=== PATIENT | male | born 1975 | race African-American/Black ===

== ENCOUNTER 2016-05-21 05:10 | Emergency (ER) | payer OTHER ==
[2016-05-21 05:18] VITALS: BMI 23.9
--- NOTE | 2016-05-21 06:26 | RAD ---
EXAM: Right foot x-ray INDICATION: Pain COMPARISION: None TECHNIQUE: AP, lateral, and oblique, three views FINDINGS: No acute fracture or dislocation. The joint spaces are preserved. The soft tissues are normal. No ra diopaque foreign body. IMPRESSION: Normal right foot x-ray exam Reported By:
--- NOTE | 2016-05-21 06:26 | DR.GENAD ---
HPI - PCP Primary Care Physician: NORMA - Complaint/Symptoms Chief Complaint:: RIGHT GREAT TOE INJURY Self Treatment fo Chief Complaint: PT TOOK TYLENOL BUT IT WOULD NOT HELP EASE IT OFF - Source History Provided: Patient - Mode of Arrival Mode of Arrival: Ambulatory - Timing Onset of Chief Complaint: 05/20/16 PMH - PMH Past Medical History: Yes Past Medical History: Hypertension Past Surgical History: No - Family History History of Family Medical Conditions: Yes Family Medical History: Hypertension - Social History Does patient currently use any type of tobacco product: No Have you used tobacco products in the last 12 months: No Type of Tobacco Use: Cigars Does any household member use tobacco: No Alcohol Use: Occasionally Do you use any recreational Drugs:: No Lives With: Alone Lives Where: Home - infectious screening In the last 2 months have you had wt loss of >10#?: NO Have you had fever, night sweats or hemotysis?: No Have you traveled outside the country in the last 6 months?: No Isolation: Standard ROS - Review of Systems Constitutional: No Symptoms Reported Eyes: No Symptoms Reported ENTM: No Symptoms Reported Respiratoy: No Symptoms Reported Cardiovascular: No Symptoms Reported Gastrointestinal/Abdominal: No Symptoms Reported Genitourinary: No Symptoms Reported Neurological: No Symptoms Reported Musculoskeletal: Foot (injured great toe) Integumentary: No Symptoms Reported Hematologic/Lymphatic: No Symptoms Reported Endocrine: No Symptoms Reported Psychiatric: No Symptoms Reported All Other Systems: Reviewed and Negative PE - Vital Signs Vitals: Temperature 99 F Pulse Rate 65 Respiratory Rate 16 Blood Pressure 121/75 O2 Sat by Pulse Oximetry 99 - General Limitations: No Limitations General Appearance: Alert - Head Head Exam: Normal Inspection, Atraumatic - Eyes Eye exam: Normal Appearance, PERRL, EOMI - ENT ENT Exam: Normal Exam External Ear Exam: Normal External Inspection TM/Canal Exam: Bilateral Normal Nose Exam: Normal Nose Exam Mouth Exam: Normal Inspection Throat Exam: Normal Inspection - Neck Neck Exam: Normal Inspection - Chest Chest Inspection: Normal Inspection - Respiratory Respiratory Exam: Normal Lung Sounds Bilat Respiratory Exam: Bilateral Clear to Auscultation - Cardiovascular Cardiovascular Exam: Regular Rate - Abdominal Exam Abdominal Exam: Normal Inspection Abdominal Tenderness: negative: RUQ, RLQ, LUQ, LLQ, Epigastrium, Suprapubic, Diffuse, Mild, Moderate, Severe, Other - Extremities Extremities Exam: Normal Inspection, Full ROM - Back Back Exam: Normal Inspection, Full ROM - Neurologic Neurological Exam: Alert, Oriented X3, CN II-XII Intact - Psychiatric Psychiatric Exam: Normal Affect - Skin Skin Exam: Warm, Dry ROR - XRAY XRAY Interpreted by: Radiologist (Foot: normal) Procedures - Procedure Comments Procedures: Trephination of great toe of right foot - Diagnosis Discharge Problem: Crushing injury of great toe of right foot Qualifiers: Encounter type: initial encounter Qualified Code(s): S97.111A - Crushing injury of right great toe, initial encounter - Discharge Plan Condition: Stable - Follow ups/Referrals Follow ups/Referrals: Hank Mcgovern [Primary Care Provider] - 3 days - Instructions
[2016-05-21 06:51] VITALS: BP 113/67
== END 2016-05-21 06:50 | disposition home or self-care (01) ==
LOC: ER 05:10
DX: S97.111A Crushing injury of right great toe, initial encounter (principal); Y33.XXXA Other specified events, undetermined intent, initial encounter; Y92.9 Unspecified place or not applicable
CPT/HCPCS: 73630; 99282

== ENCOUNTER 2018-11-03 23:16 | Inpatient (IN) ==
[2018-11-03 23:29] VITALS: BMI 22.8
[2018-11-04] MEDS ORDERED: TORADOL 60 MG VIAL IM ONE (00:33)
[2018-11-04] MEDS ORDERED: TORADOL 60 MG VIAL ONE (00:34)
--- NOTE | 2018-11-04 00:38 | DR.ABDMALE ---
HPI - Time seen Time seen: 00:32 - PCP Primary Care Physician: DR. GREEN - Complaint Chief Complaint Doctors Comments: Patient is complaining of LUQ pain and left sided back pain for the past seven days getting progressively worst today. aixa whitaker states he is having sharp pain with the pain being 8 of 10 with the pain worst on movement. He denies hematuria or dysuria but has nocturia x2. He smokes two cigars weeklyand drinks alcohol socially. He denies drug or vapor usage. He denies any recent trauma. He is a patient of Dr. Green. He denies cold, cough, fever or chills. State he has taken Ibuprofen 800mg for pain today. He denies diarrhea or constipation. Chief Complaint:: STATES HE IS HURTING ON HIS LEFT SIDE. STARTED ABOUT A WEEK AGO. Self Treatment fo Chief Complaint: IBUPROFEN 800MG THIS AM - Reviewed Nurses Notes Review: Yes - Mode of arrival Mode of Arrival: Ambulatory - Timing Onset of Chief Complaint: 10/27/18 Came on: Gradually - Duration Duration: Intermittent How lon Duration: Days - Location Location: LUQ - Severity Severity: Moderate - Quality Quality: Sharp - Context Onset: Gradually History of: None - Modifying factors Worsening Factors: Movement Improving Factors: Nothing - Associated signs and symptoms Associated Signs and Symptoms: None PMH - PMH Past Medical History: Yes Past Medical History: Hypertension Past Surgical History: No Surgical History: No History - Family History History of Family Medical Conditions: Yes Family Medical History: Hypertension - Social History Type of Tobacco Use: Cigars Does any household member use tobacco: No Alcohol Use: Occasionally Do you use any recreational Drugs:: No Lives With: Alone Lives Where: Home - infectious screening In the last 2 months have you had wt loss of >10#?: NO Have you had fever, night sweats or hemotysis?: No Have you traveled outside the country in the last 6 months?: No Isolation: Standard ROS - Review of Systems Constitutional: No Symptoms Reported Eyes: No Symptoms Reported ENTM: No Symptoms Reported Respiratoy: No Symptoms Reported. negative: See HPI, Productive Cough, Non- Productive Cough, Moist Cough, Dry Cough, Hacking Cough, Barking Cough, Brassy Cough, Orthopnea, Short of Breath, Stridor, Wheezing, Hemoptysis, Other Cardiovascular: No Symptoms Reported. negative: See HPI, Chest Pain, Edema, Palpitations, Syncope, Cyanosis, Skin Mottling, Other Gastrointestinal/Abdominal: No Symptoms Reported, Abdominal Pain Genitourinary: No Symptoms Reported, Frequency. negative: See HPI, Discharge, Dysuria, Hematuria, Pain, Bleeding, Other Neurological: No Symptoms Reported Musculoskeletal: No Symptoms Reported, Back Pain Integumentary: No Symptoms Reported Hematologic/Lymphatic: No Symptoms Reported. negative: See HPI, Anemia, Blood Clots, Easy Bleeding, Easy Bruising, Swollen Glands, Lymphadenopathy, Other Endocrine: No Symptoms Reported. negative: See HPI, Excessive Sweating, Flushing, Intolerance to Cold, Intolerance to Heat, Increased Hunger, Increased Thirst, Increased Urine, Unexplained Weight Gain, Unexplained Weight Loss, Failure to Thrive, Decreased Appetite, Other Psychiatric: No Symptoms Reported. negative: See HPI, Anxiety, Depression, Hallucinations, Excessive crying, Suicidal, Other PE - General Limitations: No Limitations General Appearance: Alert, In Distress (moderate) - Head Head Exam: Normal Inspection, Atraumatic, Normocephalic - Eyes Eye exam: Normal Appearance, PERRL, EOMI. negative: Scleral Icterus, Conjunctival Injection, Nystagmus, Miosis, Mydrasis, Periorbital Swelling, Periorbital Tenderness, Other - ENT ENT Exam: Normal Exam, Normal Oropharynx, Normal External Ear Exam, Mucous Membranes Moist, TM's Normal Bilaterally - Neck Neck Exam: Normal Inspection, Full ROM, Trachea Midline. negative: Tenderness, Meningismus, Lymphadenopathy, Thyromegaly, Other - Chest Chest Inspection: Normal Inspection, Symmetric Chest Wall Rise. negative: Tenderness, Rash, Abscess, Other - Respiratory Respiratory Exam: Normal Lung Sounds Bilat Respiratory Exam: Bilateral Clear to Auscultation - Cardiovascular Cardiovascular Exam: Regular Rate, Normal Rhythm, Normal Heart Sounds - Abdominal Exam Abdominal Exam: Normal Inspection, Normal Bowel Sounds, Soft, Tenderness (LUQ tenderness with guarding), Guarding, Dimnished Bowel Sounds Abdominal Tenderness: LUQ, Epigastrium, Moderate - Rectal Rectal Exam: Deferred - Back Back Exam: Normal Inspection, Full ROM, (L) CVA Tenderness - Extremeties Extremities Exam: Normal Inspection, Full ROM, Normal Capillary Refill. negative: Tenderness, Edema, Joint Swelling, Calf Tenderness, Other - Exam: Male: Deferred - Neurologic Neurological Exam: Alert, Oriented X3, CN II-XII Intact, Normal Gait, Reflexes Normal - Psychiatric Psychiatric Exam: Normal Affect, Normal Mood - Skin Skin Exam: Warm, Dry, Intact, Normal Color - Vital Signs Vital Signs: Temp Pulse Resp BP BP Pulse Ox 11/04/18 00:34 18 11/03/18 23:26 98 F 78 18 132/82 100 10/22/17 21:01 94/54 94/54 Course - Consultation Called: 01:57 (Dr. Dennis want medicine admit consult him; NPO, give Zosyn and Flagyl IV) Call Returned: 01:58 (Dr. Cabezas agrees to admit with surgery consult) - Education/Counseling Education/Counseling: Patient, Family Educated On: Treatment, Diagnosis, Needs for Follow Up ROR - Labs Reviewed Laboratory Results Reviewed?: Yes (All labs and x-ray results reviewed and discussed with patient) Result Diagrams: 11/04/18 00:41 11/04/18 00:41 - XRAY XRAY Interpreted by: Radiologist (CT abdomen and pelvis: Inflamed descending co [place] with thick wall and adjacent free fluid in presence of diverticula concerning for perforated diverticulitis with developing abscess. ) - Labs Reviewed Laboratory: WBC 10.9 X10^3/uL (3.6-10.0) H 11/04/18 00:41 RBC 4.92 X10^6/uL (4.7-6.0) 11/04/18 00:41 Hgb 11.2 g/dL (13.5-18.0) L 11/04/18 00:41 Hct 34.6 % (42.0-54.0) L 11/04/18 00:41 MCV 70.2 fL (80.0-100.0) L 11/04/18 00:41 MCH 22.7 pg (27.0-34.0) L 11/04/18 00:41 MCHC 32.4 g/dL (33.0-35.0) L 11/04/18 00:41 RDW 15.7 % (11.6-16.5) 11/04/18 00:41 Plt Count 180 X10^3/uL (150.0-450.0) 11/04/18 00:41 Plt Count Comment Adequate (ADEQUATE) 11/04/18 00:41 MPV 10.3 fL (7.4-11.0) 11/04/18 00:41 Neut % (Auto) 76.9 % (42.0-75.0) H 11/04/18 00:41 Lymph % (Auto) 14.5 % (21.0-51.0) L 11/04/18 00:41 [place] % (Auto) 7.2 % (0.0-13.0) 11/04/18 00:41 Eos % (Auto) 1.0 % (0.9-2.9) 11/04/18 00:41 Baso % (Auto) 0.4 % (0.2-1.0) 11/04/18 00:41 Neut # (Auto) 8.4 x10^3/uL (2.2-4.8) H 11/04/18 00:41 Lymph # (Auto) 1.6 X10^3/uL (1.3-2.9) 11/04/18 00:41 [place] # (Auto) 0.8 x10^3/uL (0.3-0.8) 11/04/18 00:41 Eos # (Auto) 0.1 x10^3/uL (0.0-0.2) 11/04/18 00:41 Baso # (Auto) 0.0 X10^3/uL (0.0-0.1) 11/04/18 00:41 Absolute Nucleated RBC 0.0 /100WBC 11/04/18 00:41 Plt Morphology Comment Normal (NORMAL) 11/04/18 00:41 RBC Morphology Abnormal (NORMAL) 11/04/18 00:41 Hypochromasia 2+ A 11/04/18 00:41 Anisocytosis 1+ A 11/04/18 00:41 Sodium 140 mmol/L (136-145) 11/04/18 00:41 Corrected Sodium TNP 11/04/18 00:41 Potassium 3.9 mmol/L (3.5-5.1) 11/04/18 00:41 Chloride 104 mmol/L (98-107) 11/04/18 00:41 Carbon Dioxide 28.5 mmol/L (21-32) 11/04/18 00:41 BUN 10 mg/dL (7-18) 11/04/18 00:41 Creatinine 0.63 mg/dL (0.70-1.30) L 11/04/18 00:41 Est GFR (MDRD) Af Amer > 60 (>60) 11/04/18 00:41 Est GFR (MDRD) Non-Af > 60 (>60) 11/04/18 00:41 Glucose 84 mg/dL (65-99) 11/04/18 00:41 Calcium 7.7 mg/dL (8.5-10.1) L 11/04/18 00:41 Corrected Calcium 8.3 mg/dL (8.5-10.1) L 11/04/18 00:41 Total Bilirubin 0.30 mg/dL (0.2-1.0) 11/04/18 00:41 AST 37 Units/L (15-37) 11/04/18 00:41 ALT 53 Units/L (12-78) 11/04/18 00:41 Alkaline Phosphatase 72 Units/L (46-116) 11/04/18 00:41 Total Protein 6.8 g/dL (6.4-8.2) 11/04/18 00:41 Albumin 3.2 g/dL (3.4-5.0) L 11/04/18 00:41 Globulin 3.6 g/dL (2.5-4.5) 11/04/18 00:41 Albumin/Globulin Ratio 0.9 Ratio (1.1-2.1) L 11/04/18 00:41 Amylase 56 Units/L (25-115) 11/04/18 00:41 Lipase 40 Units/L (73-393) L 11/04/18 00:41 Specimen Type Clean catch urine 11/04/18 01:05 Urine Color Yellow (YELLOW) 11/04/18 01:05 Urine Appearance Clear (CLEAR) 11/04/18 01:05 Urine pH 6.5 (5.0 - 8.0) 11/04/18 01:05 Ur Specific [place] 1.010 (1.000-1.030) 11/04/18 01:05 Urine Protein Negative (NEGATIVE) 11/04/18 01:05 Urine Glucose (UA) Negative (NEGATIVE) 11/04/18 01:05 Urine Ketones Negative (NEGATIVE) 11/04/18 01:05 Urine Occult Blood 1+ (NEGATIVE) 11/04/18 01:05 Urine Nitrite Negative (NEGATIVE) 11/04/18 01:05 Urine Bilirubin Negative (NEGATIVE) 11/04/18 01:05 Urine Urobilinogen 2+ (NORMAL) 11/04/18 01:05 Ur Leukocyte Esterase Negative (NEGATIVE) 11/04/18 01:05 Urine RBC 0-2 /HPF (0-3) 11/04/18 01:05 Urine WBC 0-2 /HPF (0-5) 11/04/18 01:05 Ur Squamous Epith Cells Few /HPF (NEGATIVE) 11/04/18 01:05 Urine Bacteria Negative /HPF (NEGATIVE) 11/04/18 01:05 Ur Culture Indicated? No/not indicated 11/04/18 01:05 Opioid - Opioid Risk Tool Total: 0 Total Score Risk Category: Low Risk - Diagnosis Discharge Problem: Acute diverticulitis, Perforated abdominal viscus, Microcytic anemia, Abdominal pain in male, Hypocalcemia - Discharge Plan Disposition: ADMITTED INPATIENT Condition: Stable - Follow ups/Referrals Follow ups/Referrals: Hank Green [Primary Care Provider] - 3 days - Instructions
[2018-11-04 00:49] LABS: BASOPHILS % (AUTO) 0.4 % (0.2-1.0); EOSINOPHILS # (AUTO) 0.1 x10^3/uL (0.0-0.2); HEMATOCRIT 34.6 % (42.0-54.0); HEMOGLOBIN 11.2 g/dL (13.5-18.0); LYMPHOCYTES # (AUTO) 1.6 X10^3/uL (1.3-2.9); LYMPHOCYTES % (AUTO) 14.5 % (21.0-51.0); MEAN CORPUSCULAR HEMOGLOBIN 22.7 pg (27.0-34.0); MEAN CORPUSCULAR HGB CONC 32.4 g/dL (33.0-35.0); MEAN CORPUSCULAR VOLUME 70.2 fL (80.0-100.0); MEAN PLATELET VOLUME 10.3 fL (7.4-11.0); MONOCYTES # (AUTO) 0.8 x10^3/uL (0.3-0.8); MONOCYTES % (AUTO) 7.2 % (0.0-13.0); NEUTROPHILS # (AUTO) 8.4 x10^3/uL (2.2-4.8); NEUTROPHILS % (AUTO) 76.9 % (42.0-75.0); PLATELET COUNT 180 X10^3/uL (150.0-450.0); RED BLOOD COUNT 4.92 X10^6/uL (4.7-6.0); RED CELL DISTRIBUTION WIDTH 15.7 % (11.6-16.5); WHITE BLOOD COUNT 10.9 X10^3/uL (3.6-10.0)
[2018-11-04 00:57] LABS: ALANINE AMINOTRANSFERASE 53 Units/L (12-78); ALBUMIN 3.2 g/dL (3.4-5.0); ALKALINE PHOSPHATASE 72 Units/L (46-116); AMYLASE 56 Units/L (25-115); ASPARTATE AMINO TRANSFERASE 37 Units/L (15-37); BLOOD UREA NITROGEN 10 mg/dL (7-18); CALCIUM 7.7 mg/dL (8.5-10.1); CARBON DIOXIDE 28.5 mmol/L (21-32); CHLORIDE 104 mmol/L (98-107); COR CA(FOR HYPOALB) 8.3 mg/dL (8.5-10.1); CREATININE 0.63 mg/dL (0.70-1.30); LIPASE 40 Units/L (73-393); SODIUM 140 mmol/L (136-145); TOTAL PROTEIN 6.8 g/dL (6.4-8.2); eGFR NON BLACK RACES > 60 (>60)
[2018-11-04 01:14] LABS: BILIRUBIN,URINE NEGATIVE (NEGATIVE); BLOOD/HEMOGLOBIN,URINE 1+ (NEGATIVE); GLUCOSE, URINE NEGATIVE (NEGATIVE); KETONES,URINE NEGATIVE (NEGATIVE); LEUKOCYTE ESTERASE ,URINE NEGATIVE (NEGATIVE); NITRITES,URINE NEGATIVE (NEGATIVE); PH,URINE 6.5 (5.0 - 8.0); PROTEIN,URINE NEGATIVE (NEGATIVE); UROBILINOGEN,URINE 2+ (NORMAL)
[2018-11-04 01:17] LABS: APPEARANCE,URINE CLEAR (CLEAR); COLOR,URINE YELLOW (YELLOW)
--- NOTE | 2018-11-04 01:30 | CT ---
CT abdomen and pelvis without contrast Indication left upper quadrant pain Technique: Helical images through the abdomen and pelvis without contrast. Coronal and sagittal reformats provided. Findings: Limited images through the lower chest shows no acute abnormality. Review of bone windows shows no destructive osseous lesion. Hip joint DJD. Abdomen: The liver, gallbladder, spleen, pancreas, adrenal glands, gallbladder, stomach and small bowel are normal. The appendix is colon. Left renal cyst noted. Kidneys are otherwise normal. Fatty atrophy of the paraspinal musculature noted. There is inflammatory process involving the descending colon on axial image is 46 and coronal image 41. This could reflect acute diverticulitis. Lack of contrast limits sensitivity somewhat. There are noninflamed diverticulum near this inflammation of the colon. Underlying colon lesion should be excluded. Pelvis: The urinary bladder, rectum and prostate gland are normal. There is small free fluid in the left pericolic gutter. Impression: 1. There is inflamed descending colon with thick wall and adjacent free fluid, in the presence of diverticula -this is concerning for perforated diverticulitis with developing abscess. Lack of contrast limits sensitivity significantly. Surgical consultation recommended. 2. Follow-up to exclude underlying neoplasia. Reported By:
[2018-11-04 01:32] LABS: BACTERIA,URINE NEGATIVE /HPF (NEGATIVE); RBC,URINE 0-2 /HPF (0-3); SQUAMOUS EPITHELIAL CELL,UR FEW /HPF (NEGATIVE)
[2018-11-04 01:39] LABS: ANISOCYTOSIS 1+; HYPOCHROMASIA 2+; PLATELET MORPHOLOGY COMMENT NORMAL (NORMAL)
[2018-11-04] MEDS ORDERED: FLAGYL IV PREMIX 500 MG BAG 500 MG/100 ML BAG IV ONE ×3 (01:50→08:08)
[2018-11-04] MEDS ORDERED: MORPHINE SULFATE INJ 2 MG INJ IVP ONE (01:50)
[2018-11-04] MEDS ORDERED: NS 1000 ML 1,000 ML ONE (01:53)
[2018-11-04] MEDS: NS 1000 ML 1,000 ML IV SCH ×4 (01:57→23:08)
[2018-11-04] MEDS ORDERED: NS 100 ML IV + SPIKE MINIBAG* 100 ML IV ONE (02:10)
[2018-11-04] MEDS ORDERED: MORPHINE SULFATE INJ 2 MG INJ ONE (02:10)
[2018-11-04] MEDS ORDERED: ZOSYN VIAL 3.375 GRAMS IV ONE (02:11)
[2018-11-04] MEDS ORDERED: PEPCID 20 MG IV PREMIX* 20 MG/50 ML BAG IV PRN ×4 (02:20→04:34)
[2018-11-04] MEDS ORDERED: MORPHINE SULFATE INJ 2 MG INJ IVP PRN ×3 (02:20→04:34)
[2018-11-04] MEDS ORDERED: ZOFRAN INJ 4 MG VIAL IVP PRN ×4 (02:20→04:34)
[2018-11-04] MEDS ORDERED: FLAGYL IV PREMIX 500 MG BAG 500 MG/100 ML BAG IV SCH ×3 (03:00)
[2018-11-04] MEDS ORDERED: ZOSYN VIAL 3.375 GRAMS 3.375 G in NS 100 ML IV + SPIKE MINIBAG* 100 ML IV SCH ×6 (03:00)
[2018-11-04] MEDS: ZOSYN VIAL 3.375 GRAMS 3.375 G in NS 100 ML IV + SPIKE MINIBAG* 100 ML IV ONE ×2 (03:33→10:57)
[2018-11-04 06:37] LABS: BASOPHILS # (AUTO) 0.1 X10^3/uL (0.0-0.1); BASOPHILS % (AUTO) 0.8 % (0.2-1.0); EOSINOPHILS # (AUTO) 0.1 x10^3/uL (0.0-0.2); EOSINOPHILS % (AUTO) 1.5 % (0.9-2.9); HEMATOCRIT 32.1 % (42.0-54.0); HEMOGLOBIN 10.4 g/dL (13.5-18.0); LYMPHOCYTES % (AUTO) 21.2 % (21.0-51.0); MEAN CORPUSCULAR HEMOGLOBIN 22.7 pg (27.0-34.0); MEAN CORPUSCULAR HGB CONC 32.2 g/dL (33.0-35.0); MEAN CORPUSCULAR VOLUME 70.4 fL (80.0-100.0); MEAN PLATELET VOLUME 10.8 fL (7.4-11.0); MONOCYTES # (AUTO) 0.7 x10^3/uL (0.3-0.8); MONOCYTES % (AUTO) 7.1 % (0.0-13.0); NEUTROPHILS # (AUTO) 6.6 x10^3/uL (2.2-4.8); NEUTROPHILS % (AUTO) 69.4 % (42.0-75.0); PLATELET COUNT 164 X10^3/uL (150.0-450.0); RED BLOOD COUNT 4.56 X10^6/uL (4.7-6.0); RED CELL DISTRIBUTION WIDTH 15.6 % (11.6-16.5); WHITE BLOOD COUNT 9.5 X10^3/uL (3.6-10.0)
[2018-11-04 07:01] LABS: BLOOD UREA NITROGEN 8 mg/dL (7-18); CALCIUM 7.8 mg/dL (8.5-10.1); CARBON DIOXIDE 27.4 mmol/L (21-32); CHLORIDE 104 mmol/L (98-107); SODIUM 140 mmol/L (136-145); eGFR NON BLACK RACES > 60 (>60)
[2018-11-04 07:16] LABS: ANISOCYTOSIS SLIGHT; HYPOCHROMASIA 1+; MICROCYTOSIS SLIGHT; PLATELET MORPHOLOGY COMMENT NORMAL (NORMAL)
[2018-11-04] MEDS ORDERED: TYLENOL 325 MG TAB PO ONE (08:18)
[2018-11-04] MEDS: TYLENOL 325 MG TAB PO PRN ×4 (08:20→20:08)
[2018-11-04] MEDS: FLAGYL IV PREMIX 500 MG BAG 500 MG/100 ML BAG IV SCH ×3 (09:00→20:18)
[2018-11-04] MEDS: ZOSYN VIAL 3.375 GRAMS 3.375 G in NS 100 ML IV + SPIKE MINIBAG* 100 ML IV SCH ×3 (10:59→21:20)
[2018-11-04] MEDS: MORPHINE SULFATE INJ 2 MG INJ IVP PRN (11:14)
[2018-11-04] MEDS: PROTONIX INJ 40 MG VIAL IVP SCH ×2 (13:14→20:09)
[2018-11-04] MEDS: PEPCID 20 MG IV PREMIX* 20 MG/50 ML BAG IV SCH (20:13)
[2018-11-04] MEDS ORDERED: PREVNAR 13 IM ONE (22:03)
[2018-11-05] MEDS: MORPHINE SULFATE INJ 2 MG INJ IVP PRN ×3 (01:31→20:04)
[2018-11-05] MEDS: FLAGYL IV PREMIX 500 MG BAG 500 MG/100 ML BAG IV SCH ×4 (02:02→21:00)
[2018-11-05] MEDS: ZOSYN VIAL 3.375 GRAMS 3.375 G in NS 100 ML IV + SPIKE MINIBAG* 100 ML IV SCH ×3 (05:13→22:41)
[2018-11-05] MEDS: NS 1000 ML 1,000 ML IV SCH ×2 (05:48→17:10)
[2018-11-05 06:54] LABS: BASOPHILS % (AUTO) 0.9 % (0.2-1.0); EOSINOPHILS # (AUTO) 0.1 x10^3/uL (0.0-0.2); EOSINOPHILS % (AUTO) 1.9 % (0.9-2.9); HEMATOCRIT 30.6 % (42.0-54.0); LYMPHOCYTES # (AUTO) 1.6 X10^3/uL (1.3-2.9); LYMPHOCYTES % (AUTO) 32.1 % (21.0-51.0); MEAN CORPUSCULAR HGB CONC 32.7 g/dL (33.0-35.0); MEAN CORPUSCULAR VOLUME 70.3 fL (80.0-100.0); MEAN PLATELET VOLUME 10.8 fL (7.4-11.0); MONOCYTES # (AUTO) 0.5 x10^3/uL (0.3-0.8); MONOCYTES % (AUTO) 10.7 % (0.0-13.0); NEUTROPHILS # (AUTO) 2.7 x10^3/uL (2.2-4.8); NEUTROPHILS % (AUTO) 54.4 % (42.0-75.0); PLATELET COUNT 153 X10^3/uL (150.0-450.0); RED BLOOD COUNT 4.35 X10^6/uL (4.7-6.0); RED CELL DISTRIBUTION WIDTH 15.5 % (11.6-16.5); WHITE BLOOD COUNT 4.9 X10^3/uL (3.6-10.0)
[2018-11-05 06:57] LABS: ALANINE AMINOTRANSFERASE 41 Units/L (12-78); ALBUMIN 2.8 g/dL (3.4-5.0); ALKALINE PHOSPHATASE 48 Units/L (46-116); ASPARTATE AMINO TRANSFERASE 33 Units/L (15-37); BLOOD UREA NITROGEN 9 mg/dL (7-18); CALCIUM 7.7 mg/dL (8.5-10.1); CARBON DIOXIDE 24.6 mmol/L (21-32); CHLORIDE 104 mmol/L (98-107); COR CA(FOR HYPOALB) 8.7 mg/dL (8.5-10.1); CREATININE 0.69 mg/dL (0.70-1.30); SODIUM 138 mmol/L (136-145); eGFR NON BLACK RACES > 60 (>60)
[2018-11-05 07:20] LABS: HYPOCHROMASIA 1+; PLATELET MORPHOLOGY COMMENT NORMAL (NORMAL)
[2018-11-05] MEDS: PEPCID 20 MG IV PREMIX* 20 MG/50 ML BAG IV SCH ×2 (09:19→21:00)
[2018-11-05] MEDS: PROTONIX INJ 40 MG VIAL IVP SCH ×2 (09:19→21:00)
--- NOTE | 2018-11-05 11:48 | DR.H&P ---
H&P - History & Physical for Day of: H&P Date: 11/04/18 - Chief Complaint Chief Complaint: LUQ PAIN AND LEFT SIDED BACK PAIN - History of Present Illness History of Present Illness: IS A 43 YEAR OLD PATIENT OF OURS WHO PRESENTED TO THE ER WITH COMPLAINTS OF LEFT UPPER QUADRANT PAIN AND LEFT SIDED BACK PAIN FOR THE PAST WEEK. HE REPORTS THAT SYMPTOMS HAVE PROGRESSVELY GOTTEN WORSE. HE REPORTS PAIN 8/10 THAT IS WORSE UPON MOVEMENT. HE DENIES HEMATURIA OR DYSURIA. HE REPORTS TAKING IBUPROFEN 800MG WITHOUT IMPROVEMENT IN SYMPTOMS. ON ARRIVAL TO THE ER, VITALS WERE 98.0-78-18-100%-132/82. LABS WERE OBTAINED. ABNORMAL LAB VALUES INCLUDE THE FOLLOWING: WBC 10.9, HGB 11.2, HCT 34.6, CREATININE 0.63, CALCIUM 7.7, ALBUMIN 3.2, CRP 6.00, LIPASE 40. A URINALYSIS WAS OBTAINED AND REVEALED: WBC 0-2, RBC 0-2, BACTERIA NEGATIVE, LEUKOCYTES NEGATIVE. AN ABDOMEN/PELVIS CT WAS OBTAINED AND REVEALED: There is inflamed descending colon with thick wall and adjacent free fluid, in the presence of diverticula - this is concerning for perforated diverticulitis with developing abscess. Lack of contrast limits sensitivity significantly. Surgical consultation recommended. Follow-up to exclude underlying neoplasia. HE WAS GIVEN MORPHINE 2MG IV X 1, TORADOL 60MG IM X 1, ZOSYN 3.375G IV X 1, AND FLAGYL 500MG IV X 1 IN THE ER. HE REPORTED ONLY MILD IMPROVEMENT IN SYMPTOMS. WE ADMITTED PATIENT FOR FURTHER EVALUATION AND TREATMENT OF ABDOMINAL PAIN, RULE OUT PERFORATED VISCOUS DIVERTICULITIS. HE WAS STARTED ON NORMAL SALINE AT 150ML/HR, ZOSYN 3.375G IV TID, FLAGYL 500MG IV Q6H, PEPCID 20MG IV Q12H, PROTONIX 40MG IV BID, ZOFRAN 4MG IV Q6H PRN, AND MORPHINE 2MG IV Q4H PRN. , GENERAL SURGEON, WAS CONSULTED. OTHERWISE, WE PLAN TO FOLLOW UP WITH AM LABS AND CONTINUE TO MONITOR. - Past Medical History Past Medical History: Hypertension - Past Surgical History Surgical History: No History - Family History Family Medical History: Hypertension - Social History Does patient currently use any type of tobacco product: Yes Have you used tobacco products in the last 12 months: Yes Type of Tobacco Use: Cigars How many years tobacco product used: 4 Does any household member use tobacco: No Alcohol Use: Occasionally Drug Use: None Prescription drug monitoring program results: PDMP was not reviewed - Medications Home Medications: No Known Drug Allergies Allergy (Verified 10/22/17 20:46) CONTINUE taking the following medications lisinopril 20 mg PO DAILY 11/04/18 [History] - Review of Systems Constitutional: No Symptoms Reported Eyes: No Symptoms Reported ENT: No Symptoms Reported Respiratory: No Symptoms Reported Cardiovascular: No Symptoms Reported Gastrointestinal: Nausea, Abdominal Pain (LUQ PAIN ) Genitourinary: No Symptoms Reported Musculoskeletal: Back Pain (LEFT SIDED BACK PAIN ) Skin: No Symptoms Reported Neurological: No Symptoms Reported - Physical Exam Vital Signs: Temperature 98.3 F Pulse Rate [Right Brachial] 61 Pulse Rate [Left Brachial] 50 Pulse Rate 78 Respiratory Rate 20 Blood Pressure [Right Arm] 150/79 Blood Pressure [Left Arm] 131/80 Blood Pressure 132/82 O2 Sat by Pulse Oximetry 100 Oriented: Normal Eyes: Normal Ear: Normal Nose: Normal Throat: Normal Respiratory: Diminished Throughout Cardiovascular: Normal. negative: S3, S4, Murmur : Normal Auscultation: Bowel Sounds: Normal Palpation: Normal Tenderness: LUQ, Moderate. negative: Rebound, Guarding, Rigidity Skin: Normal Musculoskeletal: Normal Psychiatric: Normal Mood Description: Calm Affect: Normal Speech Pattern: Clear - Assessment/Plan (1) Abdominal pain Qualifiers: Abdominal location: left upper quadrant Qualified Code(s): R10.12 - Left upper quadrant pain Status: Acute Plan: ADMIT, SURGICAL CONSULT, NORMAL SALINE AT 150ML/HR, ZOSYN 3.375G IV TID, FLAGYL 500MG IV Q6H, PEPCID 20MG IV Q12H, PROTONIX 40MG IV BID, ZOFRAN 4MG IV Q6H PRN, AND MORPHINE 2MG IV Q4H PRN. (2) Perforated abdominal viscus Status: Suspected - Allergies Allergies/Adverse Reactions: Allergies Allergy/AdvReac Type Severity Reaction Status Date / Time No Known Drug Allergies Allergy Verified 10/22/17 20:46
--- NOTE | 2018-11-05 16:26 | DR.PROGNOT ---
Hospital Progress Notes - Progress Note for Day of: Progress Note Date: 11/05/18 - Chief Complaint Chief Complaint: moderate LLQ pain ( less than yesterday ). no nausea , no vomiting and no fever .. - Past Medical Family Social History Past Med/Fam/Surg Hx: No changes since H&P Allergies: Allergies No Known Drug Allergies Allergy (Verified 10/22/17 20:46) - Review Of Systems ROS: No change since H&P - Vital Signs Vital Signs: Temperature 98.3 F Pulse Rate [Right Brachial] 61 Pulse Rate [Left Brachial] 50 Pulse Rate 78 Respiratory Rate 20 Blood Pressure [Right Arm] 150/79 Blood Pressure [Left Arm] 131/80 Blood Pressure 132/82 O2 Sat by Pulse Oximetry 100 - Physical Exam Oriented: Normal Eyes: Normal Ear: Normal Nose: Normal Throat: Normal Cardiovascular: Normal. negative: S3, S4, Murmur : Normal GI:Auscultation: Normal GI:Palpation: Normal GI: Tenderness: LUQ, Moderate. negative: Rebound, Guarding, Rigidity Skin: Normal Musculoskeletal: Normal Psychiatric: Normal Mood Description: Calm Affect: Normal Speech Pattern: Clear - Laboratory and Diagnostics Result Diagrams: 11/05/18 05:43 11/05/18 05:43 Labs: Laboratory WBC 4.9 X10^3/uL (3.6-10.0) 11/05/18 05:43 RBC 4.35 X10^6/uL (4.7-6.0) L 11/05/18 05:43 Hgb 10.0 g/dL (13.5-18.0) L 11/05/18 05:43 Hct 30.6 % (42.0-54.0) L 11/05/18 05:43 MCV 70.3 fL (80.0-100.0) L 11/05/18 05:43 MCH 23.0 pg (27.0-34.0) L 11/05/18 05:43 MCHC 32.7 g/dL (33.0-35.0) L 11/05/18 05:43 RDW 15.5 % (11.6-16.5) 11/05/18 05:43 Plt Count 153 X10^3/uL (150.0-450.0) 11/05/18 05:43 Plt Count Comment Adequate (ADEQUATE) 11/05/18 05:43 MPV 10.8 fL (7.4-11.0) 11/05/18 05:43 Neut % (Auto) 54.4 % (42.0-75.0) 11/05/18 05:43 Lymph % (Auto) 32.1 % (21.0-51.0) 11/05/18 05:43 [place] % (Auto) 10.7 % (0.0-13.0) 11/05/18 05:43 Eos % (Auto) 1.9 % (0.9-2.9) 11/05/18 05:43 Baso % (Auto) 0.9 % (0.2-1.0) 11/05/18 05:43 Neut # (Auto) 2.7 x10^3/uL (2.2-4.8) 11/05/18 05:43 Lymph # (Auto) 1.6 X10^3/uL (1.3-2.9) 11/05/18 05:43 [place] # (Auto) 0.5 x10^3/uL (0.3-0.8) 11/05/18 05:43 Eos # (Auto) 0.1 x10^3/uL (0.0-0.2) 11/05/18 05:43 Baso # (Auto) 0.0 X10^3/uL (0.0-0.1) 11/05/18 05:43 Absolute Nucleated RBC 0.1 /100WBC 11/05/18 05:43 Plt Morphology Comment Normal (NORMAL) 11/05/18 05:43 RBC Morphology Abnormal (NORMAL) 11/05/18 05:43 Hypochromasia 1+ A 11/05/18 05:43 Anisocytosis Slight A 11/04/18 05:33 Microcytosis Slight A 11/04/18 05:33 ESR 8 MM/HOUR (0-15) 11/05/18 05:43 Sodium 138 mmol/L (136-145) 11/05/18 05:43 Corrected Sodium TNP 11/05/18 05:43 Potassium 3.2 mmol/L (3.5-5.1) L 11/05/18 05:43 Chloride 104 mmol/L (98-107) 11/05/18 05:43 Carbon Dioxide 24.6 mmol/L (21-32) 11/05/18 05:43 BUN 9 mg/dL (7-18) 11/05/18 05:43 Creatinine 0.69 mg/dL (0.70-1.30) L 11/05/18 05:43 Est GFR (MDRD) Af Amer > 60 (>60) 11/05/18 05:43 Est GFR (MDRD) Non-Af > 60 (>60) 11/05/18 05:43 Glucose 68 mg/dL (65-99) 11/05/18 05:43 Calcium 7.7 mg/dL (8.5-10.1) L 11/05/18 05:43 Corrected Calcium 8.7 mg/dL (8.5-10.1) 11/05/18 05:43 Magnesium 1.4 mg/dL (1.7-2.9) L 11/05/18 05:43 Total Bilirubin 0.90 mg/dL (0.2-1.0) 11/05/18 05:43 AST 33 Units/L (15-37) 11/05/18 05:43 ALT 41 Units/L (12-78) 11/05/18 05:43 Alkaline Phosphatase 48 Units/L (46-116) 11/05/18 05:43 C-Reactive Protein 6.10 mg/L (0-3.0) H 11/05/18 05:43 Total Protein 6.0 g/dL (6.4-8.2) L 11/05/18 05:43 Albumin 2.8 g/dL (3.4-5.0) L 11/05/18 05:43 Globulin 3.2 g/dL (2.5-4.5) 11/05/18 05:43 Albumin/Globulin Ratio 0.9 Ratio (1.1-2.1) L 11/05/18 05:43 Amylase 56 Units/L (25-115) 11/04/18 00:41 Lipase 40 Units/L (73-393) L 11/04/18 00:41 Specimen Type Clean catch urine 11/04/18 01:05 Urine Color Yellow (YELLOW) 11/04/18 01:05 Urine Appearance Clear (CLEAR) 11/04/18 01:05 Urine pH 6.5 (5.0 - 8.0) 11/04/18 01:05 Ur Specific [place] 1.010 (1.000-1.030) 11/04/18 01:05 Urine Protein Negative (NEGATIVE) 11/04/18 01:05 Urine Glucose (UA) Negative (NEGATIVE) 11/04/18 01:05 Urine Ketones Negative (NEGATIVE) 11/04/18 01:05 Urine Occult Blood 1+ (NEGATIVE) 11/04/18 01:05 Urine Nitrite Negative (NEGATIVE) 11/04/18 01:05 Urine Bilirubin Negative (NEGATIVE) 11/04/18 01:05 Urine Urobilinogen 2+ (NORMAL) 11/04/18 01:05 Ur Leukocyte Esterase Negative (NEGATIVE) 11/04/18 01:05 Urine RBC 0-2 /HPF (0-3) 11/04/18 01:05 Urine WBC 0-2 /HPF (0-5) 11/04/18 01:05 Ur Squamous Epith Cells Few /HPF (NEGATIVE) 11/04/18 01:05 Urine Bacteria Negative /HPF (NEGATIVE) 11/04/18 01:05 Ur Culture Indicated? No/not indicated 11/04/18 01:05 - Assessment and Plan 1: acute sigmoid diverticulitis .( subsiding ). same IV ATB . may have water . full liquid in am . - Problem Patient Problems: Patient Problems Acute diverticulitis (Acute) K57.92 Perforated abdominal viscus (Suspected) Microcytic anemia (Acute) D50.9 Abdominal pain in male (Acute) R10.9 Hypocalcemia (Acute) E83.51 Abdominal pain (Acute) R10.9
[2018-11-06] MEDS: FLAGYL IV PREMIX 500 MG BAG 500 MG/100 ML BAG IV SCH ×4 (02:10→21:02)
[2018-11-06] MEDS ORDERED: NS 100 ML IV 100 ML IV ONE (05:44)
[2018-11-06] MEDS: NS 1000 ML 1,000 ML IV SCH ×4 (05:45→23:23)
[2018-11-06 06:42] LABS: BASOPHILS % (AUTO) 0.4 % (0.2-1.0); EOSINOPHILS # (AUTO) 0.1 x10^3/uL (0.0-0.2); EOSINOPHILS % (AUTO) 0.7 % (0.9-2.9); HEMATOCRIT 33.1 % (42.0-54.0); HEMOGLOBIN 10.5 g/dL (13.5-18.0); LYMPHOCYTES # (AUTO) 1.1 X10^3/uL (1.3-2.9); LYMPHOCYTES % (AUTO) 13.9 % (21.0-51.0); MEAN CORPUSCULAR HEMOGLOBIN 22.6 pg (27.0-34.0); MEAN CORPUSCULAR HGB CONC 31.8 g/dL (33.0-35.0); MEAN CORPUSCULAR VOLUME 70.9 fL (80.0-100.0); MEAN PLATELET VOLUME 11.2 fL (7.4-11.0); MONOCYTES # (AUTO) 0.6 x10^3/uL (0.3-0.8); MONOCYTES % (AUTO) 7.9 % (0.0-13.0); NEUTROPHILS # (AUTO) 6.2 x10^3/uL (2.2-4.8); NEUTROPHILS % (AUTO) 77.1 % (42.0-75.0); PLATELET COUNT 164 X10^3/uL (150.0-450.0); RED BLOOD COUNT 4.67 X10^6/uL (4.7-6.0); RED CELL DISTRIBUTION WIDTH 15.4 % (11.6-16.5)
[2018-11-06] MEDS: ZOSYN VIAL 3.375 GRAMS 3.375 G in NS 100 ML IV + SPIKE MINIBAG* 100 ML IV SCH ×2 (06:47→13:35)
[2018-11-06 06:56] LABS: ALANINE AMINOTRANSFERASE 42 Units/L (12-78); ALKALINE PHOSPHATASE 50 Units/L (46-116); ASPARTATE AMINO TRANSFERASE 40 Units/L (15-37); BLOOD UREA NITROGEN 9 mg/dL (7-18); CALCIUM 7.9 mg/dL (8.5-10.1); CARBON DIOXIDE 21.3 mmol/L (21-32); CHLORIDE 103 mmol/L (98-107); COR CA(FOR HYPOALB) 8.7 mg/dL (8.5-10.1); CREATININE 0.68 mg/dL (0.70-1.30); SODIUM 140 mmol/L (136-145); TOTAL PROTEIN 6.3 g/dL (6.4-8.2); eGFR NON BLACK RACES > 60 (>60)
[2018-11-06 07:25] LABS: ANISOCYTOSIS SLIGHT; HYPOCHROMASIA 1+; PLATELET MORPHOLOGY COMMENT NORMAL (NORMAL)
[2018-11-06 07:31] LABS: ERYTHROCYTE SEDIMENTATION RATE 10 MM/HOUR (0-15)
[2018-11-06] MEDS: PROTONIX INJ 40 MG VIAL IVP SCH ×2 (08:32→20:25)
[2018-11-06] MEDS: PEPCID 20 MG IV PREMIX* 20 MG/50 ML BAG IV SCH ×2 (08:32→20:27)
[2018-11-06] MEDS: MORPHINE SULFATE INJ 2 MG INJ IVP PRN ×2 (09:26→22:25)
[2018-11-06] MEDS ORDERED: POTASSIUM CHL 40 MEQ/NS 0.45% 500 ML IV PRN (15:51)
[2018-11-06] MEDS ORDERED: K-RIDER 10 MEQ/NS 100 ML 10 MEQ/100 ML BAG IV PRN (15:51)
[2018-11-06] MEDS ORDERED: MICRO K EXTEN CAP 10 MEQ PO PRN (15:51)
[2018-11-06] MEDS ORDERED: POTASSIUM CHLORIDE LIQ 20 MEQ UDC PO PRN (15:51)
[2018-11-06] MEDS ORDERED: POTASSIUM CHL 60 MEQ/NS 0.45% 500 ML IV PRN (15:51)
[2018-11-06] MEDS ORDERED: KLOR-CON PO PRN (15:51)
--- NOTE | 2018-11-06 16:20 | CT ---
HISTORY: Diverticulitis, abdominal pain, evaluate for perforation Study: CT abdomen and pelvis with contrast Comparison: None Technique: Multiple axial images of the abdomen and pelvis were obtained with IV contrast. Oral contrast was administered. Dose reduction techniques including Automated Exposure Control (AEC) and adjustment of mA and kV were utilized. Findings: The visualized portions of the lung bases are clear. The liver, spleen, pancreas, and adrenal glands are unremarkable. The gallbladder is normal. No renal calculi or obstructive uropathy. There is a simple left renal cyst. No free intraperitoneal air. Oral contrast reaches the distal small bowel. In the left abdomen there is circumferential bowel wall edema of the descending colon with mucosal irregularity and heterogeneous enhancement. The findings could represent focal diverticulitis or other focal colitis. An underlying mass in this region cannot be completely excluded. There is no evidence to suggest gross perforation at this point although there is severe bowel wall edema therefore continued follow-up may be of benefit. There is fluid along the inferior pericolic gutter and pelvis likely reactive in nature. No drainable abscess identified. The soft tissues and osseous structures are unremarkable. The vascular structures are within normal limits for age. No pathologically enlarged lymph nodes are identified. Normal urinary bladder. IMPRESSION: 1. Severe segmental inflammation of the mid descending colon that could represent diverticulitis or other colitis. There is associated mucosal irregularity with heterogeneous bowel wall enhancement/edema but without gross perforation at this time. Continued follow-up may be of benefit. There is reactive free fluid adjacent to the inflamed bowel segment extending along the pericolic gutter into the pelvis. No drainable abscess collection. 2. When clinically appropriate, colonoscopy may be of benefit to exclude underlying mass in this region. Reported By:
[2018-11-06] MEDS: K-DUR TAB 20 MEQ PO PRN (18:55)
[2018-11-06] MEDS: TYLENOL 325 MG TAB PO PRN (20:25)
[2018-11-06] MEDS: MAGNESIUM SULFATE 1 GRAM/100 mL PREMIX 1 GM/100 ML BAG IV PRN ×2 (22:15→23:18)
--- NOTE | 2018-11-06 22:57 | DR.PROGNOT ---
Hospital Progress Notes - Progress Note for Day of: Progress Note Date: 11/06/18 - Chief Complaint Chief Complaint: moderate LLQ pain. no nausea , no vomiting and no fever ..WBC normal . CT still showing active sigmoid diverticulitis - Past Medical Family Social History Past Med/Fam/Surg Hx: No changes since H&P Allergies: Allergies No Known Drug Allergies Allergy (Verified 10/22/17 20:46) - Review Of Systems ROS: No change since H&P - Vital Signs Vital Signs: Temperature 99.1 F Pulse Rate [Right Brachial] 56 Pulse Rate [Left Brachial] 50 Pulse Rate 78 Respiratory Rate 18 Blood Pressure [Right Arm] 153/72 Blood Pressure [Left Arm] 131/80 Blood Pressure 132/82 O2 Sat by Pulse Oximetry 98 - Physical Exam Oriented: Normal Eyes: Normal Ear: Normal Nose: Normal Throat: Normal Cardiovascular: Normal. negative: S3, S4, Murmur : Normal GI:Auscultation: Normal GI:Palpation: Normal GI: Tenderness: LUQ, Moderate. negative: Rebound, Guarding, Rigidity Skin: Normal Musculoskeletal: Normal Psychiatric: Normal Mood Description: Calm Affect: Normal Speech Pattern: Clear, Appropriate - Laboratory and Diagnostics Result Diagrams: 11/06/18 05:56 11/06/18 05:56 Labs: Laboratory WBC 8.0 X10^3/uL (3.6-10.0) 11/06/18 05:56 RBC 4.67 X10^6/uL (4.7-6.0) L 11/06/18 05:56 Hgb 10.5 g/dL (13.5-18.0) L 11/06/18 05:56 Hct 33.1 % (42.0-54.0) L 11/06/18 05:56 MCV 70.9 fL (80.0-100.0) L 11/06/18 05:56 MCH 22.6 pg (27.0-34.0) L 11/06/18 05:56 MCHC 31.8 g/dL (33.0-35.0) L 11/06/18 05:56 RDW 15.4 % (11.6-16.5) 11/06/18 05:56 Plt Count 164 X10^3/uL (150.0-450.0) 11/06/18 05:56 Plt Count Comment Adequate (ADEQUATE) 11/06/18 05:56 MPV 11.2 fL (7.4-11.0) H 11/06/18 05:56 Neut % (Auto) 77.1 % (42.0-75.0) H 11/06/18 05:56 Lymph % (Auto) 13.9 % (21.0-51.0) L 11/06/18 05:56 [place] % (Auto) 7.9 % (0.0-13.0) 11/06/18 05:56 Eos % (Auto) 0.7 % (0.9-2.9) L 11/06/18 05:56 Baso % (Auto) 0.4 % (0.2-1.0) 11/06/18 05:56 Neut # (Auto) 6.2 x10^3/uL (2.2-4.8) H 11/06/18 05:56 Lymph # (Auto) 1.1 X10^3/uL (1.3-2.9) L 11/06/18 05:56 [place] # (Auto) 0.6 x10^3/uL (0.3-0.8) 11/06/18 05:56 Eos # (Auto) 0.1 x10^3/uL (0.0-0.2) 11/06/18 05:56 Baso # (Auto) 0.0 X10^3/uL (0.0-0.1) 11/06/18 05:56 Absolute Nucleated RBC 0.1 /100WBC 11/06/18 05:56 Plt Morphology Comment Normal (NORMAL) 11/06/18 05:56 RBC Morphology Abnormal (NORMAL) 11/06/18 05:56 Hypochromasia 1+ A 11/06/18 05:56 Anisocytosis Slight A 11/06/18 05:56 Microcytosis Slight A 11/04/18 05:33 ESR 10 MM/HOUR (0-15) 11/06/18 05:56 Sodium 140 mmol/L (136-145) 11/06/18 05:56 Corrected Sodium TNP 11/06/18 05:56 Potassium 3.4 mmol/L (3.5-5.1) L 11/06/18 05:56 Chloride 103 mmol/L (98-107) 11/06/18 05:56 Carbon Dioxide 21.3 mmol/L (21-32) 11/06/18 05:56 BUN 9 mg/dL (7-18) 11/06/18 05:56 Creatinine 0.68 mg/dL (0.70-1.30) L 11/06/18 05:56 Est GFR (MDRD) Af Amer > 60 (>60) 11/06/18 05:56 Est GFR (MDRD) Non-Af > 60 (>60) 11/06/18 05:56 Glucose 66 mg/dL (65-99) 11/06/18 05:56 Calcium 7.9 mg/dL (8.5-10.1) L 11/06/18 05:56 Corrected Calcium 8.7 mg/dL (8.5-10.1) 11/06/18 05:56 Magnesium 1.5 mg/dL (1.7-2.9) L 11/06/18 05:56 Total Bilirubin 0.90 mg/dL (0.2-1.0) 11/06/18 05:56 AST 40 Units/L (15-37) H 11/06/18 05:56 ALT 42 Units/L (12-78) 11/06/18 05:56 Alkaline Phosphatase 50 Units/L (46-116) 11/06/18 05:56 C-Reactive Protein 14.40 mg/L (0-3.0) H 11/06/18 05:56 Total Protein 6.3 g/dL (6.4-8.2) L 11/06/18 05:56 Albumin 3.0 g/dL (3.4-5.0) L 11/06/18 05:56 Globulin 3.3 g/dL (2.5-4.5) 11/06/18 05:56 Albumin/Globulin Ratio 0.9 Ratio (1.1-2.1) L 11/06/18 05:56 Amylase 56 Units/L (25-115) 11/04/18 00:41 Lipase 40 Units/L (73-393) L 11/04/18 00:41 Carcinoembryonic Ag 1.1 ng/mL (0.0-3.0) 11/05/18 05:43 Specimen Type Clean catch urine 11/04/18 01:05 Urine Color Yellow (YELLOW) 11/04/18 01:05 Urine Appearance Clear (CLEAR) 11/04/18 01:05 Urine pH 6.5 (5.0 - 8.0) 11/04/18 01:05 Ur Specific [place] 1.010 (1.000-1.030) 11/04/18 01:05 Urine Protein Negative (NEGATIVE) 11/04/18 01:05 Urine Glucose (UA) Negative (NEGATIVE) 11/04/18 01:05 Urine Ketones Negative (NEGATIVE) 11/04/18 01:05 Urine Occult Blood 1+ (NEGATIVE) 11/04/18 01:05 Urine Nitrite Negative (NEGATIVE) 11/04/18 01:05 Urine Bilirubin Negative (NEGATIVE) 11/04/18 01:05 Urine Urobilinogen 2+ (NORMAL) 11/04/18 01:05 Ur Leukocyte Esterase Negative (NEGATIVE) 11/04/18 01:05 Urine RBC 0-2 /HPF (0-3) 11/04/18 01:05 Urine WBC 0-2 /HPF (0-5) 11/04/18 01:05 Ur Squamous Epith Cells Few /HPF (NEGATIVE) 11/04/18 01:05 Urine Bacteria Negative /HPF (NEGATIVE) 11/04/18 01:05 Ur Culture Indicated? No/not indicated 11/04/18 01:05 - Assessment and Plan 1: acute sigmoid diverticulitis. same IV ATB . full liquid in am . future colonoscopy . - Problem Patient Problems: Patient Problems Acute diverticulitis (Acute) K57.92 Perforated abdominal viscus (Suspected) Microcytic anemia (Acute) D50.9 Abdominal pain in male (Acute) R10.9 Hypocalcemia (Acute) E83.51 Abdominal pain (Acute) R10.9
[2018-11-07] MEDS: ZOSYN VIAL 3.375 GRAMS 3.375 G in NS 100 ML IV + SPIKE MINIBAG* 100 ML IV SCH ×4 (01:03→21:57)
[2018-11-07] MEDS: FLAGYL IV PREMIX 500 MG BAG 500 MG/100 ML BAG IV SCH ×4 (03:15→20:00)
[2018-11-07 06:12] LABS: BASOPHILS % (AUTO) 0.5 % (0.2-1.0); EOSINOPHILS # (AUTO) 0.1 x10^3/uL (0.0-0.2); EOSINOPHILS % (AUTO) 1.7 % (0.9-2.9); HEMATOCRIT 31.8 % (42.0-54.0); HEMOGLOBIN 10.4 g/dL (13.5-18.0); LYMPHOCYTES # (AUTO) 1.3 X10^3/uL (1.3-2.9); LYMPHOCYTES % (AUTO) 20.7 % (21.0-51.0); MEAN CORPUSCULAR HEMOGLOBIN 22.7 pg (27.0-34.0); MEAN CORPUSCULAR HGB CONC 32.7 g/dL (33.0-35.0); MEAN CORPUSCULAR VOLUME 69.6 fL (80.0-100.0); MEAN PLATELET VOLUME 10.8 fL (7.4-11.0); MONOCYTES # (AUTO) 0.8 x10^3/uL (0.3-0.8); MONOCYTES % (AUTO) 12.6 % (0.0-13.0); NEUTROPHILS # (AUTO) 3.9 x10^3/uL (2.2-4.8); NEUTROPHILS % (AUTO) 64.5 % (42.0-75.0); PLATELET COUNT 156 X10^3/uL (150.0-450.0); RED BLOOD COUNT 4.56 X10^6/uL (4.7-6.0); RED CELL DISTRIBUTION WIDTH 15.6 % (11.6-16.5); WHITE BLOOD COUNT 6.1 X10^3/uL (3.6-10.0)
[2018-11-07 06:41] LABS: HYPOCHROMASIA 1+; MICROCYTOSIS 1+; PLATELET MORPHOLOGY COMMENT NORMAL (NORMAL)
[2018-11-07 06:53] LABS: ERYTHROCYTE SEDIMENTATION RATE 7 MM/HOUR (0-15)
[2018-11-07 06:55] LABS: ALANINE AMINOTRANSFERASE 41 Units/L (12-78); ALBUMIN 2.8 g/dL (3.4-5.0); ALKALINE PHOSPHATASE 48 Units/L (46-116); ASPARTATE AMINO TRANSFERASE 34 Units/L (15-37); BLOOD UREA NITROGEN 3 mg/dL (7-18); CALCIUM 7.7 mg/dL (8.5-10.1); CARBON DIOXIDE 25.5 mmol/L (21-32); CHLORIDE 105 mmol/L (98-107); COR CA(FOR HYPOALB) 8.7 mg/dL (8.5-10.1); CREATININE 0.58 mg/dL (0.70-1.30); MAGNESIUM 1.8 mg/dL (1.7-2.9); SODIUM 142 mmol/L (136-145); eGFR NON BLACK RACES > 60 (>60)
[2018-11-07] MEDS: NS 1000 ML 1,000 ML IV SCH ×3 (08:53→21:12)
[2018-11-07] MEDS: PROTONIX INJ 40 MG VIAL IVP SCH ×2 (08:54→21:12)
[2018-11-07] MEDS: PEPCID 20 MG IV PREMIX* 20 MG/50 ML BAG IV SCH ×2 (08:55→21:12)
[2018-11-07] MEDS: MORPHINE SULFATE INJ 2 MG INJ IVP PRN ×2 (08:55→21:12)
--- NOTE | 2018-11-07 09:37 | DR.PROGNOT ---
Hospital Progress Notes - Progress Note for Day of: Progress Note Date: 11/07/18 - Chief Complaint Chief Complaint: moderate LLQ pain. no nausea , no vomiting and no fever ..WBC normal . had normal BM today .. - Past Medical Family Social History Past Med/Fam/Surg Hx: No changes since H&P Allergies: Allergies No Known Drug Allergies Allergy (Verified 10/22/17 20:46) - Review Of Systems ROS: No change since H&P - Vital Signs Vital Signs: Temperature 98.5 F Pulse Rate [Right Brachial] 65 Pulse Rate [Left Brachial] 50 Pulse Rate 78 Respiratory Rate 16 Blood Pressure [Right Arm] 160/91 Blood Pressure [Left Arm] 131/80 Blood Pressure 132/82 O2 Sat by Pulse Oximetry 96 - Physical Exam Oriented: Normal Eyes: Normal Ear: Normal Nose: Normal Throat: Normal Cardiovascular: Normal. negative: S3, S4, Murmur : Normal GI:Auscultation: Normal GI:Palpation: Normal GI: Tenderness: LUQ, Moderate (soft ,flat abdomen , with mild LLQ tenderness , no rebound . BS+). negative: Rebound, Guarding, Rigidity Skin: Normal Musculoskeletal: Normal Psychiatric: Normal Mood Description: Calm Affect: Normal Speech Pattern: Clear, Appropriate - Laboratory and Diagnostics Result Diagrams: 11/07/18 05:33 11/07/18 05:33 Labs: Laboratory WBC 6.1 X10^3/uL (3.6-10.0) 11/07/18 05:33 RBC 4.56 X10^6/uL (4.7-6.0) L 11/07/18 05:33 Hgb 10.4 g/dL (13.5-18.0) L 11/07/18 05:33 Hct 31.8 % (42.0-54.0) L 11/07/18 05:33 MCV 69.6 fL (80.0-100.0) L 11/07/18 05:33 MCH 22.7 pg (27.0-34.0) L 11/07/18 05:33 MCHC 32.7 g/dL (33.0-35.0) L 11/07/18 05:33 RDW 15.6 % (11.6-16.5) 11/07/18 05:33 Plt Count 156 X10^3/uL (150.0-450.0) 11/07/18 05:33 Plt Count Comment Adequate (ADEQUATE) 11/07/18 05:33 MPV 10.8 fL (7.4-11.0) 11/07/18 05:33 Neut % (Auto) 64.5 % (42.0-75.0) 11/07/18 05:33 Lymph % (Auto) 20.7 % (21.0-51.0) L 11/07/18 05:33 [place] % (Auto) 12.6 % (0.0-13.0) 11/07/18 05:33 Eos % (Auto) 1.7 % (0.9-2.9) 11/07/18 05:33 Baso % (Auto) 0.5 % (0.2-1.0) 11/07/18 05:33 Neut # (Auto) 3.9 x10^3/uL (2.2-4.8) 11/07/18 05:33 Lymph # (Auto) 1.3 X10^3/uL (1.3-2.9) 11/07/18 05:33 [place] # (Auto) 0.8 x10^3/uL (0.3-0.8) 11/07/18 05:33 Eos # (Auto) 0.1 x10^3/uL (0.0-0.2) 11/07/18 05:33 Baso # (Auto) 0.0 X10^3/uL (0.0-0.1) 11/07/18 05:33 Absolute Nucleated RBC 0.0 /100WBC 11/07/18 05:33 Plt Morphology Comment Normal (NORMAL) 11/07/18 05:33 RBC Morphology Abnormal (NORMAL) 11/07/18 05:33 Hypochromasia 1+ A 11/07/18 05:33 Anisocytosis Slight A 11/06/18 05:56 Microcytosis 1+ A 11/07/18 05:33 ESR 7 MM/HOUR (0-15) 11/07/18 05:33 Sodium 142 mmol/L (136-145) 11/07/18 05:33 Corrected Sodium TNP 11/07/18 05:33 Potassium 3.5 mmol/L (3.5-5.1) 11/07/18 05:33 Chloride 105 mmol/L (98-107) 11/07/18 05:33 Carbon Dioxide 25.5 mmol/L (21-32) 11/07/18 05:33 BUN 3 mg/dL (7-18) L 11/07/18 05:33 Creatinine 0.58 mg/dL (0.70-1.30) L 11/07/18 05:33 Est GFR (MDRD) Af Amer > 60 (>60) 11/07/18 05:33 Est GFR (MDRD) Non-Af > 60 (>60) 11/07/18 05:33 Glucose 87 mg/dL (65-99) 11/07/18 05:33 Calcium 7.7 mg/dL (8.5-10.1) L 11/07/18 05:33 Corrected Calcium 8.7 mg/dL (8.5-10.1) 11/07/18 05:33 Magnesium 1.8 mg/dL (1.7-2.9) 11/07/18 05:33 Total Bilirubin 0.50 mg/dL (0.2-1.0) 11/07/18 05:33 AST 34 Units/L (15-37) 11/07/18 05:33 ALT 41 Units/L (12-78) 11/07/18 05:33 Alkaline Phosphatase 48 Units/L (46-116) 11/07/18 05:33 C-Reactive Protein 16.40 mg/L (0-3.0) H 11/07/18 05:33 Total Protein 6.0 g/dL (6.4-8.2) L 11/07/18 05:33 Albumin 2.8 g/dL (3.4-5.0) L 11/07/18 05:33 Globulin 3.2 g/dL (2.5-4.5) 11/07/18 05:33 Albumin/Globulin Ratio 0.9 Ratio (1.1-2.1) L 11/07/18 05:33 Amylase 56 Units/L (25-115) 11/04/18 00:41 Lipase 40 Units/L (73-393) L 11/04/18 00:41 Carcinoembryonic Ag 1.1 ng/mL (0.0-3.0) 11/05/18 05:43 Specimen Type Clean catch urine 11/04/18 01:05 Urine Color Yellow (YELLOW) 11/04/18 01:05 Urine Appearance Clear (CLEAR) 11/04/18 01:05 Urine pH 6.5 (5.0 - 8.0) 11/04/18 01:05 Ur Specific [place] 1.010 (1.000-1.030) 11/04/18 01:05 Urine Protein Negative (NEGATIVE) 11/04/18 01:05 Urine Glucose (UA) Negative (NEGATIVE) 11/04/18 01:05 Urine Ketones Negative (NEGATIVE) 11/04/18 01:05 Urine Occult Blood 1+ (NEGATIVE) 11/04/18 01:05 Urine Nitrite Negative (NEGATIVE) 11/04/18 01:05 Urine Bilirubin Negative (NEGATIVE) 11/04/18 01:05 Urine Urobilinogen 2+ (NORMAL) 11/04/18 01:05 Ur Leukocyte Esterase Negative (NEGATIVE) 11/04/18 01:05 Urine RBC 0-2 /HPF (0-3) 11/04/18 01:05 Urine WBC 0-2 /HPF (0-5) 11/04/18 01:05 Ur Squamous Epith Cells Few /HPF (NEGATIVE) 11/04/18 01:05 Urine Bacteria Negative /HPF (NEGATIVE) 11/04/18 01:05 Ur Culture Indicated? No/not indicated 11/04/18 01:05 - Assessment and Plan 1: subsiding acute sigmoid diverticulitis. same IV ATB . full liquid diet. maybe D/C in am - Problem Patient Problems: Patient Problems Acute diverticulitis (Acute) K57.92 Perforated abdominal viscus (Suspected) Microcytic anemia (Acute) D50.9 Abdominal pain in male (Acute) R10.9 Hypocalcemia (Acute) E83.51 Abdominal pain (Acute) R10.9
--- NOTE | 2018-11-07 10:53 | PCM.PROG ---
Progress Note - Progress Note for Day of Date of Exam: 11/05/18 - Subjective Subjective: WAS ADMITTED FOR TREATEMENT OF ABDOMINAL PAIN, RULE OUT PERFORATED VISCUS DIVERTICULITIS. TODAY, HE IS ALERT AND ORIENTED, LYING IN BED ON MORNING ROUNDS. HE CONTINUES WITH COMPLAINTS OF ABDOMINAL PAIN. ON EXAMINATION, HEART IS REGULAR IN RATE AND RHYTHM. BILATERAL LUNGS ARE NOTED WITH DIMINISHED LUNG SOUNDS THROUGHOUT. ABDOMEN IS ROUND, SOFT, AND NOTED WITH LUQ TENDERNESS. HYPOACTIVE BOWEL SOUNDS ARE NOTED. HIS VITALS THIS MORNING ARE: 98.2-70-18-96%-130/79. RBC 4.56, HGB 10.4, HCT 32.1, CREATINE 0.63, CALCIUM 7.7, ALBUMIN 3.2, LIPASE 40, CRP 6.00. WAS CONSULTED. HE PLANS TO CONTINUE ANTIBIOTICS AND MONITOR. WE ARE IN AGREEMENT WITH PLAN. HE IS CURRENTLY RECEIVING IV FLUIDS, IV ZOSYN, IV FLAGYL, IV PEPCID, IV PROTONIX, AND ZOFRAN. WE WILL ADVANCE DIET TODAY. WE PLAN TO REPEAT AN ABDOMINAL/PELVIS CT IN THE MORNING. OTHERWISE, WE WILL FOLLOW UP WITH AM LABS AND CONTINUE TO MONITOR. - Past Medical Family Social History Past Med/Fam/Surg Hx: No changes since H&P Allergies: Allergies No Known Drug Allergies Allergy (Verified 10/22/17 20:46) - Review of Systems ROS: No change since H&P - Vital Signs and I&O's Vital Signs: Temperature 98.5 F Pulse Rate [Right Brachial] 65 Pulse Rate [Left Brachial] 50 Pulse Rate 78 Respiratory Rate 16 Blood Pressure [Right Arm] 160/91 Blood Pressure [Left Arm] 131/80 Blood Pressure 132/82 O2 Sat by Pulse Oximetry 96 Intake and Output: Intake & Output 11/04/18 11/05/18 11/06/18 11/07/18 11:59 11:59 11:59 11:59 Intake Total 1732 / 1732 480 / 480 1530 / 1530 Balance 1732 / 1732 480 / 480 1530 / 1530 - Physical Exam Oriented: Normal Eyes: Normal Ear: Normal Nose: Normal Throat: Normal Respiratory: Generalized, Diminished Cardiovascular: Normal. negative: S3, S4, Murmur : Normal Auscultation: Bowel Sounds: Normal Palpation: Normal Tenderness: LUQ, Moderate (soft ,flat abdomen , with mild LLQ tenderness , no rebound . BS+). negative: Rebound, Guarding, Rigidity Skin: Normal Musculoskeletal: Normal Psychiatric: Normal Mood Description: Calm Affect: Normal Speech Pattern: Clear, Appropriate - Laboratory and Diagnostics Result Diagrams: 11/07/18 05:33 11/07/18 05:33 Labs: Laboratory WBC 6.1 X10^3/uL (3.6-10.0) 11/07/18 05:33 RBC 4.56 X10^6/uL (4.7-6.0) L 11/07/18 05:33 Hgb 10.4 g/dL (13.5-18.0) L 11/07/18 05:33 Hct 31.8 % (42.0-54.0) L 11/07/18 05:33 MCV 69.6 fL (80.0-100.0) L 11/07/18 05:33 MCH 22.7 pg (27.0-34.0) L 11/07/18 05:33 MCHC 32.7 g/dL (33.0-35.0) L 11/07/18 05:33 RDW 15.6 % (11.6-16.5) 11/07/18 05:33 Plt Count 156 X10^3/uL (150.0-450.0) 11/07/18 05:33 Plt Count Comment Adequate (ADEQUATE) 11/07/18 05:33 MPV 10.8 fL (7.4-11.0) 11/07/18 05:33 Neut % (Auto) 64.5 % (42.0-75.0) 11/07/18 05:33 Lymph % (Auto) 20.7 % (21.0-51.0) L 11/07/18 05:33 [place] % (Auto) 12.6 % (0.0-13.0) 11/07/18 05:33 Eos % (Auto) 1.7 % (0.9-2.9) 11/07/18 05:33 Baso % (Auto) 0.5 % (0.2-1.0) 11/07/18 05:33 Neut # (Auto) 3.9 x10^3/uL (2.2-4.8) 11/07/18 05:33 Lymph # (Auto) 1.3 X10^3/uL (1.3-2.9) 11/07/18 05:33 [place] # (Auto) 0.8 x10^3/uL (0.3-0.8) 11/07/18 05:33 Eos # (Auto) 0.1 x10^3/uL (0.0-0.2) 11/07/18 05:33 Baso # (Auto) 0.0 X10^3/uL (0.0-0.1) 11/07/18 05:33 Absolute Nucleated RBC 0.0 /100WBC 11/07/18 05:33 Plt Morphology Comment Normal (NORMAL) 11/07/18 05:33 RBC Morphology Abnormal (NORMAL) 11/07/18 05:33 Hypochromasia 1+ A 11/07/18 05:33 Anisocytosis Slight A 11/06/18 05:56 Microcytosis 1+ A 11/07/18 05:33 ESR 7 MM/HOUR (0-15) 11/07/18 05:33 Sodium 142 mmol/L (136-145) 11/07/18 05:33 Corrected Sodium TNP 11/07/18 05:33 Potassium 3.5 mmol/L (3.5-5.1) 11/07/18 05:33 Chloride 105 mmol/L (98-107) 11/07/18 05:33 Carbon Dioxide 25.5 mmol/L (21-32) 11/07/18 05:33 BUN 3 mg/dL (7-18) L 11/07/18 05:33 Creatinine 0.58 mg/dL (0.70-1.30) L 11/07/18 05:33 Est GFR (MDRD) Af Amer > 60 (>60) 11/07/18 05:33 Est GFR (MDRD) Non-Af > 60 (>60) 11/07/18 05:33 Glucose 87 mg/dL (65-99) 11/07/18 05:33 Calcium 7.7 mg/dL (8.5-10.1) L 11/07/18 05:33 Corrected Calcium 8.7 mg/dL (8.5-10.1) 11/07/18 05:33 Magnesium 1.8 mg/dL (1.7-2.9) 11/07/18 05:33 Total Bilirubin 0.50 mg/dL (0.2-1.0) 11/07/18 05:33 AST 34 Units/L (15-37) 11/07/18 05:33 ALT 41 Units/L (12-78) 11/07/18 05:33 Alkaline Phosphatase 48 Units/L (46-116) 11/07/18 05:33 C-Reactive Protein 16.40 mg/L (0-3.0) H 11/07/18 05:33 Total Protein 6.0 g/dL (6.4-8.2) L 11/07/18 05:33 Albumin 2.8 g/dL (3.4-5.0) L 11/07/18 05:33 Globulin 3.2 g/dL (2.5-4.5) 11/07/18 05:33 Albumin/Globulin Ratio 0.9 Ratio (1.1-2.1) L 11/07/18 05:33 Amylase 56 Units/L (25-115) 11/04/18 00:41 Lipase 40 Units/L (73-393) L 11/04/18 00:41 Carcinoembryonic Ag 1.1 ng/mL (0.0-3.0) 11/05/18 05:43 Specimen Type Clean catch urine 11/04/18 01:05 Urine Color Yellow (YELLOW) 11/04/18 01:05 Urine Appearance Clear (CLEAR) 11/04/18 01:05 Urine pH 6.5 (5.0 - 8.0) 11/04/18 01:05 Ur Specific [place] 1.010 (1.000-1.030) 11/04/18 01:05 Urine Protein Negative (NEGATIVE) 11/04/18 01:05 Urine Glucose (UA) Negative (NEGATIVE) 11/04/18 01:05 Urine Ketones Negative (NEGATIVE) 11/04/18 01:05 Urine Occult Blood 1+ (NEGATIVE) 11/04/18 01:05 Urine Nitrite Negative (NEGATIVE) 11/04/18 01:05 Urine Bilirubin Negative (NEGATIVE) 11/04/18 01:05 Urine Urobilinogen 2+ (NORMAL) 11/04/18 01:05 Ur Leukocyte Esterase Negative (NEGATIVE) 11/04/18 01:05 Urine RBC 0-2 /HPF (0-3) 11/04/18 01:05 Urine WBC 0-2 /HPF (0-5) 11/04/18 01:05 Ur Squamous Epith Cells Few /HPF (NEGATIVE) 11/04/18 01:05 Urine Bacteria Negative /HPF (NEGATIVE) 11/04/18 01:05 Ur Culture Indicated? No/not indicated 11/04/18 01:05 - Plan (1) Abdominal pain Status: Acute Qualifiers: Abdominal location: left upper quadrant Qualified Code(s): R10.12 - Left upper quadrant pain Plan: REPEAT ABDOMEN/PELVIS CT IN AM, SURGICAL CONSULT, NORMAL SALINE AT 150ML/HR, ZOSYN 3.375G IV TID, FLAGYL 500MG IV Q6H, PEPCID 20MG IV Q12H, PROTONIX 40MG IV BID, ZOFRAN 4MG IV Q6H PRN, AND MORPHINE 2MG IV Q4H PRN. (2) Perforated abdominal viscus Status: Suspected
[2018-11-07] MEDS: MAGNESIUM SULFATE 1 GRAM/100 mL PREMIX 1 GM/100 ML BAG IV PRN ×2 (12:04→13:10)
[2018-11-07] MEDS: K-DUR TAB 20 MEQ PO PRN (13:12)
--- NOTE | 2018-11-07 21:21 | PCM.PROG ---
Progress Note - Progress Note for Day of Date of Exam: 11/06/18 - Subjective Subjective: Severe segmental inflammation of the mid descending colon that could. represent diverticulitis or other colitis. There is associated mucosal. irregularity with heterogeneous bowel wall enhancement/edema but without gross. perforation at this time. Continued follow-up may be of benefit. There is. reactive free fluid adjacent to the inflamed bowel segment extending along the. pericolic gutter into the pelvis. No drainable abscess collection. 2. When clinically appropriate, colonoscopy may be of benefit to exclude. underlying mass in this region. - Past Medical Family Social History Past Med/Fam/Surg Hx: No changes since H&P Allergies: Allergies No Known Drug Allergies Allergy (Verified 10/22/17 20:46) - Review of Systems ROS: No change since H&P - Vital Signs and I&O's Vital Signs: Temperature 98.6 F Pulse Rate [Right Brachial] 63 Pulse Rate [Left Brachial] 50 Pulse Rate 78 Respiratory Rate 18 Blood Pressure [Right Arm] 140/84 Blood Pressure [Left Arm] 131/80 Blood Pressure 132/82 O2 Sat by Pulse Oximetry 98 Intake and Output: Intake & Output 11/05/18 11/06/18 11/07/18 11/08/18 11:59 11:59 11:59 11:59 Intake Total 1732 / 1732 480 / 480 1530 / 1530 360 / 360 Balance 1732 / 1732 480 / 480 1530 / 1530 360 / 360 - Physical Exam Oriented: Normal Eyes: Normal Ear: Normal Nose: Normal Throat: Normal Respiratory: Generalized, Diminished Cardiovascular: Normal. negative: S3, S4, Murmur : Normal Auscultation: Bowel Sounds: Normal Palpation: Normal Tenderness: LUQ, Moderate (soft ,flat abdomen , with mild LLQ tenderness , no rebound . BS+). negative: Rebound, Guarding, Rigidity Skin: Normal Musculoskeletal: Normal Psychiatric: Normal Mood Description: Calm Affect: Normal Speech Pattern: Clear, Appropriate - Laboratory and Diagnostics Result Diagrams: 11/07/18 05:33 11/07/18 05:33 Labs: Laboratory WBC 6.1 X10^3/uL (3.6-10.0) 11/07/18 05:33 RBC 4.56 X10^6/uL (4.7-6.0) L 11/07/18 05:33 Hgb 10.4 g/dL (13.5-18.0) L 11/07/18 05:33 Hct 31.8 % (42.0-54.0) L 11/07/18 05:33 MCV 69.6 fL (80.0-100.0) L 11/07/18 05:33 MCH 22.7 pg (27.0-34.0) L 11/07/18 05:33 MCHC 32.7 g/dL (33.0-35.0) L 11/07/18 05:33 RDW 15.6 % (11.6-16.5) 11/07/18 05:33 Plt Count 156 X10^3/uL (150.0-450.0) 11/07/18 05:33 Plt Count Comment Adequate (ADEQUATE) 11/07/18 05:33 MPV 10.8 fL (7.4-11.0) 11/07/18 05:33 Neut % (Auto) 64.5 % (42.0-75.0) 11/07/18 05:33 Lymph % (Auto) 20.7 % (21.0-51.0) L 11/07/18 05:33 [place] % (Auto) 12.6 % (0.0-13.0) 11/07/18 05:33 Eos % (Auto) 1.7 % (0.9-2.9) 11/07/18 05:33 Baso % (Auto) 0.5 % (0.2-1.0) 11/07/18 05:33 Neut # (Auto) 3.9 x10^3/uL (2.2-4.8) 11/07/18 05:33 Lymph # (Auto) 1.3 X10^3/uL (1.3-2.9) 11/07/18 05:33 [place] # (Auto) 0.8 x10^3/uL (0.3-0.8) 11/07/18 05:33 Eos # (Auto) 0.1 x10^3/uL (0.0-0.2) 11/07/18 05:33 Baso # (Auto) 0.0 X10^3/uL (0.0-0.1) 11/07/18 05:33 Absolute Nucleated RBC 0.0 /100WBC 11/07/18 05:33 Plt Morphology Comment Normal (NORMAL) 11/07/18 05:33 RBC Morphology Abnormal (NORMAL) 11/07/18 05:33 Hypochromasia 1+ A 11/07/18 05:33 Anisocytosis Slight A 11/06/18 05:56 Microcytosis 1+ A 11/07/18 05:33 ESR 7 MM/HOUR (0-15) 11/07/18 05:33 Sodium 142 mmol/L (136-145) 11/07/18 05:33 Corrected Sodium TNP 11/07/18 05:33 Potassium 3.5 mmol/L (3.5-5.1) 11/07/18 05:33 Chloride 105 mmol/L (98-107) 11/07/18 05:33 Carbon Dioxide 25.5 mmol/L (21-32) 11/07/18 05:33 BUN 3 mg/dL (7-18) L 11/07/18 05:33 Creatinine 0.58 mg/dL (0.70-1.30) L 11/07/18 05:33 Est GFR (MDRD) Af Amer > 60 (>60) 11/07/18 05:33 Est GFR (MDRD) Non-Af > 60 (>60) 11/07/18 05:33 Glucose 87 mg/dL (65-99) 11/07/18 05:33 Calcium 7.7 mg/dL (8.5-10.1) L 11/07/18 05:33 Corrected Calcium 8.7 mg/dL (8.5-10.1) 11/07/18 05:33 Magnesium 1.8 mg/dL (1.7-2.9) 11/07/18 05:33 Total Bilirubin 0.50 mg/dL (0.2-1.0) 11/07/18 05:33 AST 34 Units/L (15-37) 11/07/18 05:33 ALT 41 Units/L (12-78) 11/07/18 05:33 Alkaline Phosphatase 48 Units/L (46-116) 11/07/18 05:33 C-Reactive Protein 16.40 mg/L (0-3.0) H 11/07/18 05:33 Total Protein 6.0 g/dL (6.4-8.2) L 11/07/18 05:33 Albumin 2.8 g/dL (3.4-5.0) L 11/07/18 05:33 Globulin 3.2 g/dL (2.5-4.5) 11/07/18 05:33 Albumin/Globulin Ratio 0.9 Ratio (1.1-2.1) L 11/07/18 05:33 Amylase 56 Units/L (25-115) 11/04/18 00:41 Lipase 40 Units/L (73-393) L 11/04/18 00:41 Carcinoembryonic Ag 1.1 ng/mL (0.0-3.0) 11/05/18 05:43 Specimen Type Clean catch urine 11/04/18 01:05 Urine Color Yellow (YELLOW) 11/04/18 01:05 Urine Appearance Clear (CLEAR) 11/04/18 01:05 Urine pH 6.5 (5.0 - 8.0) 11/04/18 01:05 Ur Specific [place] 1.010 (1.000-1.030) 11/04/18 01:05 Urine Protein Negative (NEGATIVE) 11/04/18 01:05 Urine Glucose (UA) Negative (NEGATIVE) 11/04/18 01:05 Urine Ketones Negative (NEGATIVE) 11/04/18 01:05 Urine Occult Blood 1+ (NEGATIVE) 11/04/18 01:05 Urine Nitrite Negative (NEGATIVE) 11/04/18 01:05 Urine Bilirubin Negative (NEGATIVE) 11/04/18 01:05 Urine Urobilinogen 2+ (NORMAL) 11/04/18 01:05 Ur Leukocyte Esterase Negative (NEGATIVE) 11/04/18 01:05 Urine RBC 0-2 /HPF (0-3) 11/04/18 01:05 Urine WBC 0-2 /HPF (0-5) 11/04/18 01:05 Ur Squamous Epith Cells Few /HPF (NEGATIVE) 11/04/18 01:05 Urine Bacteria Negative /HPF (NEGATIVE) 11/04/18 01:05 Ur Culture Indicated? No/not indicated 11/04/18 01:05 - Plan (1) Abdominal pain Status: Acute Qualifiers: Abdominal location: left upper quadrant Qualified Code(s): R10.12 - Left upper quadrant pain Plan: NORMAL SALINE AT 150ML/HR, ZOSYN 3.375G IV TID, FLAGYL 500MG IV Q6H, PEPCID 20MG IV Q12H, PROTONIX 40MG IV BID, ZOFRAN 4MG IV Q6H PRN, AND MORPHINE 2MG IV Q4H PRN. (2) Perforated abdominal viscus Status: Suspected
[2018-11-08] MEDS: FLAGYL IV PREMIX 500 MG BAG 500 MG/100 ML BAG IV SCH ×4 (03:09→20:52)
[2018-11-08] MEDS: NS 1000 ML 1,000 ML IV SCH ×3 (03:10→18:14)
[2018-11-08] MEDS: ZOSYN VIAL 3.375 GRAMS 3.375 G in NS 100 ML IV + SPIKE MINIBAG* 100 ML IV SCH ×3 (06:19→22:00)
[2018-11-08 06:28] LABS: BASOPHILS % (AUTO) 0.5 % (0.2-1.0); EOSINOPHILS # (AUTO) 0.1 x10^3/uL (0.0-0.2); EOSINOPHILS % (AUTO) 2.2 % (0.9-2.9); HEMATOCRIT 32.1 % (42.0-54.0); HEMOGLOBIN 10.5 g/dL (13.5-18.0); LYMPHOCYTES # (AUTO) 1.3 X10^3/uL (1.3-2.9); LYMPHOCYTES % (AUTO) 23.1 % (21.0-51.0); MEAN CORPUSCULAR HEMOGLOBIN 22.9 pg (27.0-34.0); MEAN CORPUSCULAR HGB CONC 32.6 g/dL (33.0-35.0); MEAN CORPUSCULAR VOLUME 70.2 fL (80.0-100.0); MEAN PLATELET VOLUME 11.1 fL (7.4-11.0); MONOCYTES # (AUTO) 0.7 x10^3/uL (0.3-0.8); MONOCYTES % (AUTO) 12.7 % (0.0-13.0); NEUTROPHILS # (AUTO) 3.6 x10^3/uL (2.2-4.8); NEUTROPHILS % (AUTO) 61.5 % (42.0-75.0); PLATELET COUNT 158 X10^3/uL (150.0-450.0); RED BLOOD COUNT 4.57 X10^6/uL (4.7-6.0); RED CELL DISTRIBUTION WIDTH 15.6 % (11.6-16.5); WHITE BLOOD COUNT 5.8 X10^3/uL (3.6-10.0)
[2018-11-08 06:46] LABS: ALANINE AMINOTRANSFERASE 45 Units/L (12-78); ALBUMIN 2.9 g/dL (3.4-5.0); ALKALINE PHOSPHATASE 46 Units/L (46-116); ASPARTATE AMINO TRANSFERASE 35 Units/L (15-37); BLOOD UREA NITROGEN 1 mg/dL (7-18); CALCIUM 7.9 mg/dL (8.5-10.1); CARBON DIOXIDE 27.3 mmol/L (21-32); CHLORIDE 106 mmol/L (98-107); COR CA(FOR HYPOALB) 8.8 mg/dL (8.5-10.1); CREATININE 0.61 mg/dL (0.70-1.30); SODIUM 141 mmol/L (136-145); TOTAL PROTEIN 6.1 g/dL (6.4-8.2); eGFR NON BLACK RACES > 60 (>60)
[2018-11-08 07:17] LABS: HYPOCHROMASIA SLIGHT; PLATELET MORPHOLOGY COMMENT NORMAL (NORMAL)
[2018-11-08] MEDS: TYLENOL 325 MG TAB PO PRN (08:22)
[2018-11-08] MEDS: PROTONIX INJ 40 MG VIAL IVP SCH ×2 (08:22→20:52)
[2018-11-08] MEDS: PEPCID 20 MG IV PREMIX* 20 MG/50 ML BAG IV SCH ×2 (08:22→20:52)
--- NOTE | 2018-11-08 09:44 | DR.PROGNOT ---
Hospital Progress Notes - Progress Note for Day of: Progress Note Date: 11/08/18 - Chief Complaint Chief Complaint: mild LLQ pain. no nausea , no vomiting and no fever . tolerating diet. ..WBC normal . had normal BM today .. - Past Medical Family Social History Past Med/Fam/Surg Hx: No changes since H&P Allergies: Allergies No Known Drug Allergies Allergy (Verified 10/22/17 20:46) - Review Of Systems ROS: No change since H&P - Vital Signs Vital Signs: Temperature 98.6 F Pulse Rate [Right Brachial] 59 Pulse Rate [Left Brachial] 50 Pulse Rate 78 Respiratory Rate 18 Blood Pressure [Right Arm] 143/89 Blood Pressure [Left Arm] 131/80 Blood Pressure 132/82 O2 Sat by Pulse Oximetry 97 - Physical Exam Oriented: Normal Eyes: Normal Ear: Normal Nose: Normal Throat: Normal Respiratory: Generalized, Diminished Cardiovascular: Normal. negative: S3, S4, Murmur : Normal GI:Auscultation: Normal GI:Palpation: Normal GI: Tenderness: LUQ, Moderate (soft ,flat abdomen , with mild LLQ tenderness , no rebound . BS+). negative: Rebound, Guarding, Rigidity Skin: Normal Musculoskeletal: Normal Psychiatric: Normal Mood Description: Calm Affect: Normal Speech Pattern: Clear, Appropriate - Laboratory and Diagnostics Result Diagrams: 11/08/18 05:30 11/08/18 05:30 Labs: Laboratory WBC 5.8 X10^3/uL (3.6-10.0) 11/08/18 05:30 RBC 4.57 X10^6/uL (4.7-6.0) L 11/08/18 05:30 Hgb 10.5 g/dL (13.5-18.0) L 11/08/18 05:30 Hct 32.1 % (42.0-54.0) L 11/08/18 05:30 MCV 70.2 fL (80.0-100.0) L 11/08/18 05:30 MCH 22.9 pg (27.0-34.0) L 11/08/18 05:30 MCHC 32.6 g/dL (33.0-35.0) L 11/08/18 05:30 RDW 15.6 % (11.6-16.5) 11/08/18 05:30 Plt Count 158 X10^3/uL (150.0-450.0) 11/08/18 05:30 Plt Count Comment Adequate (ADEQUATE) 11/08/18 05:30 MPV 11.1 fL (7.4-11.0) H 11/08/18 05:30 Neut % (Auto) 61.5 % (42.0-75.0) 11/08/18 05:30 Lymph % (Auto) 23.1 % (21.0-51.0) 11/08/18 05:30 [place] % (Auto) 12.7 % (0.0-13.0) 11/08/18 05:30 Eos % (Auto) 2.2 % (0.9-2.9) 11/08/18 05:30 Baso % (Auto) 0.5 % (0.2-1.0) 11/08/18 05:30 Neut # (Auto) 3.6 x10^3/uL (2.2-4.8) 11/08/18 05:30 Lymph # (Auto) 1.3 X10^3/uL (1.3-2.9) 11/08/18 05:30 [place] # (Auto) 0.7 x10^3/uL (0.3-0.8) 11/08/18 05:30 Eos # (Auto) 0.1 x10^3/uL (0.0-0.2) 11/08/18 05:30 Baso # (Auto) 0.0 X10^3/uL (0.0-0.1) 11/08/18 05:30 Absolute Nucleated RBC 0.0 /100WBC 11/08/18 05:30 Plt Morphology Comment Normal (NORMAL) 11/08/18 05:30 RBC Morphology Abnormal (NORMAL) 11/08/18 05:30 Hypochromasia Slight A 11/08/18 05:30 Anisocytosis Slight A 11/06/18 05:56 Microcytosis 1+ A 11/07/18 05:33 ESR 7 MM/HOUR (0-15) 11/07/18 05:33 Sodium 141 mmol/L (136-145) 11/08/18 05:30 Corrected Sodium TNP 11/08/18 05:30 Potassium 3.5 mmol/L (3.5-5.1) 11/08/18 05:30 Chloride 106 mmol/L (98-107) 11/08/18 05:30 Carbon Dioxide 27.3 mmol/L (21-32) 11/08/18 05:30 BUN 1 mg/dL (7-18) L 11/08/18 05:30 Creatinine 0.61 mg/dL (0.70-1.30) L 11/08/18 05:30 Est GFR (MDRD) Af Amer > 60 (>60) 11/08/18 05:30 Est GFR (MDRD) Non-Af > 60 (>60) 11/08/18 05:30 Glucose 87 mg/dL (65-99) 11/08/18 05:30 Calcium 7.9 mg/dL (8.5-10.1) L 11/08/18 05:30 Corrected Calcium 8.8 mg/dL (8.5-10.1) 11/08/18 05:30 Magnesium 1.8 mg/dL (1.7-2.9) 11/07/18 05:33 Total Bilirubin 0.40 mg/dL (0.2-1.0) 11/08/18 05:30 AST 35 Units/L (15-37) 11/08/18 05:30 ALT 45 Units/L (12-78) 11/08/18 05:30 Alkaline Phosphatase 46 Units/L (46-116) 11/08/18 05:30 C-Reactive Protein 8.40 mg/L (0-3.0) H 11/08/18 05:30 Total Protein 6.1 g/dL (6.4-8.2) L 11/08/18 05:30 Albumin 2.9 g/dL (3.4-5.0) L 11/08/18 05:30 Globulin 3.2 g/dL (2.5-4.5) 11/08/18 05:30 Albumin/Globulin Ratio 0.9 Ratio (1.1-2.1) L 11/08/18 05:30 Amylase 56 Units/L (25-115) 11/04/18 00:41 Lipase 40 Units/L (73-393) L 11/04/18 00:41 Carcinoembryonic Ag 1.1 ng/mL (0.0-3.0) 11/05/18 05:43 Specimen Type Clean catch urine 11/04/18 01:05 Urine Color Yellow (YELLOW) 11/04/18 01:05 Urine Appearance Clear (CLEAR) 11/04/18 01:05 Urine pH 6.5 (5.0 - 8.0) 11/04/18 01:05 Ur Specific [place] 1.010 (1.000-1.030) 11/04/18 01:05 Urine Protein Negative (NEGATIVE) 11/04/18 01:05 Urine Glucose (UA) Negative (NEGATIVE) 11/04/18 01:05 Urine Ketones Negative (NEGATIVE) 11/04/18 01:05 Urine Occult Blood 1+ (NEGATIVE) 11/04/18 01:05 Urine Nitrite Negative (NEGATIVE) 11/04/18 01:05 Urine Bilirubin Negative (NEGATIVE) 11/04/18 01:05 Urine Urobilinogen 2+ (NORMAL) 11/04/18 01:05 Ur Leukocyte Esterase Negative (NEGATIVE) 11/04/18 01:05 Urine RBC 0-2 /HPF (0-3) 11/04/18 01:05 Urine WBC 0-2 /HPF (0-5) 11/04/18 01:05 Ur Squamous Epith Cells Few /HPF (NEGATIVE) 11/04/18 01:05 Urine Bacteria Negative /HPF (NEGATIVE) 11/04/18 01:05 Ur Culture Indicated? No/not indicated 11/04/18 01:05 - Assessment and Plan 1: subsiding acute sigmoid diverticulitis. maybe D/C and will follow inone week . on oral Cipro and Flagyl . - Problem Patient Problems: Patient Problems Acute diverticulitis (Acute) K57.92 Perforated abdominal viscus (Suspected) Microcytic anemia (Acute) D50.9 Abdominal pain in male (Acute) R10.9 Hypocalcemia (Acute) E83.51 Abdominal pain (Acute) R10.9
[2018-11-08] MEDS: MORPHINE SULFATE INJ 2 MG INJ IVP PRN (14:04)
--- NOTE | 2018-11-08 17:13 | PCM.PROG ---
Progress Note - Progress Note for Day of Date of Exam: 11/07/18 - Subjective Subjective: WAS ADMITTED FOR TREATMENT OF ABDOMINAL PAIN AND DIVERTICULITIS, RULE OUT PERFORATED VISCUS. TODAY, HE IS ALERT AND ORIENTED, LYING IN BED ON MORNING ROUNDS. HE CONTINUES WITH COMPLAINTS OF ABDOMINAL PAIN AND NAUSEA AFTER DRINKING. ON EXAMINATION, HEART IS REGULAR IN RATE AND RHYTHM. BILATERAL LUNGS ARE NOTED WITH DIMINISHED LUNG SOUNDS THROUGHOUT. ABDOMEN IS ROUND, SOFT, AND NOTED WITH LUQ TENDERNESS. HYPOACTIVE BOWEL SOUNDS ARE NOTED. HIS VITALS THIS MORNING ARE: 98.4-64-18-99%-146/82. LABS WERE OBTAINED. ABNORMAL LAB VALUES INCLUDE THE FOLLOWING: RBC 4.56, HGB 10.4, HCT 31.8, BUN 3, CREATININE 0.58, CALCIUM 7.7, CRP INCREASED TO 16.40, TOTAL BILI 6.0, ALBUMIN 2.8. AN ABDOMEN/PELVIS CT WITH CONTRAST WAS OBTAINED YESTERDAY AND REVEALED: Severe segmental inflammation of the mid descending colon that could. represent diverticulitis or other colitis. There is associated mucosal. irregularity with heterogeneous bowel wall enhancement/edema but without gross. perforation at this time. Continued follow-up may be of benefit. There is. reactive free fluid adjacent to the inflamed bowel segment extending along the. pericolic gutter into the pelvis. No drainable abscess collection. 2. When clinically appropriate, colonoscopy may be of benefit to exclude. underlying mass in this region. PLANS TO CONTINUE ANTIBIOTICS AND MONITOR. WE ARE IN AGREEMENT WITH PLAN. HE IS CURRENTLY RECEIVING IV FLUIDS, IV ZOSYN, IV FLAGYL, IV PEPCID, IV PROTONIX, AND ZOFRAN. WE WILL ADVANCE DIET TO FULL LIQUID TODAY. OTHERWISE, WE WILL FOLLOW UP WITH AM LABS AND CONTINUE TO MONITOR. - Past Medical Family Social History Past Med/Fam/Surg Hx: No changes since H&P Allergies: Allergies No Known Drug Allergies Allergy (Verified 10/22/17 20:46) - Review of Systems ROS: No change since H&P - Vital Signs and I&O's Vital Signs: Temperature 98.7 F Pulse Rate [Right Brachial] 57 Pulse Rate [Left Brachial] 50 Pulse Rate 78 Respiratory Rate 16 Blood Pressure [Right Arm] 149/88 Blood Pressure [Left Arm] 131/80 Blood Pressure 132/82 O2 Sat by Pulse Oximetry 100 Intake and Output: Intake & Output 11/06/18 11/07/18 11/08/18 11/09/18 11:59 11:59 11:59 11:59 Intake Total 480 / 480 1530 / 1530 1060 / 1060 460 / 460 Balance 480 / 480 1530 / 1530 1060 / 1060 460 / 460 - Physical Exam Oriented: Normal Eyes: Normal Ear: Normal Nose: Normal Throat: Normal Respiratory: Generalized, Diminished Cardiovascular: Normal. negative: S3, S4, Murmur : Normal Auscultation: Bowel Sounds: Normal Palpation: Normal Tenderness: LUQ, Moderate (soft ,flat abdomen , with mild LLQ tenderness , no rebound . BS+). negative: Rebound, Guarding, Rigidity Skin: Normal Musculoskeletal: Normal Psychiatric: Normal Mood Description: Calm Affect: Normal Speech Pattern: Clear, Appropriate - Laboratory and Diagnostics Result Diagrams: 11/08/18 05:30 11/08/18 05:30 Labs: Laboratory WBC 5.8 X10^3/uL (3.6-10.0) 11/08/18 05:30 RBC 4.57 X10^6/uL (4.7-6.0) L 11/08/18 05:30 Hgb 10.5 g/dL (13.5-18.0) L 11/08/18 05:30 Hct 32.1 % (42.0-54.0) L 11/08/18 05:30 MCV 70.2 fL (80.0-100.0) L 11/08/18 05:30 MCH 22.9 pg (27.0-34.0) L 11/08/18 05:30 MCHC 32.6 g/dL (33.0-35.0) L 11/08/18 05:30 RDW 15.6 % (11.6-16.5) 11/08/18 05:30 Plt Count 158 X10^3/uL (150.0-450.0) 11/08/18 05:30 Plt Count Comment Adequate (ADEQUATE) 11/08/18 05:30 MPV 11.1 fL (7.4-11.0) H 11/08/18 05:30 Neut % (Auto) 61.5 % (42.0-75.0) 11/08/18 05:30 Lymph % (Auto) 23.1 % (21.0-51.0) 11/08/18 05:30 [place] % (Auto) 12.7 % (0.0-13.0) 11/08/18 05:30 Eos % (Auto) 2.2 % (0.9-2.9) 11/08/18 05:30 Baso % (Auto) 0.5 % (0.2-1.0) 11/08/18 05:30 Neut # (Auto) 3.6 x10^3/uL (2.2-4.8) 11/08/18 05:30 Lymph # (Auto) 1.3 X10^3/uL (1.3-2.9) 11/08/18 05:30 [place] # (Auto) 0.7 x10^3/uL (0.3-0.8) 11/08/18 05:30 Eos # (Auto) 0.1 x10^3/uL (0.0-0.2) 11/08/18 05:30 Baso # (Auto) 0.0 X10^3/uL (0.0-0.1) 11/08/18 05:30 Absolute Nucleated RBC 0.0 /100WBC 11/08/18 05:30 Plt Morphology Comment Normal (NORMAL) 11/08/18 05:30 RBC Morphology Abnormal (NORMAL) 11/08/18 05:30 Hypochromasia Slight A 11/08/18 05:30 Anisocytosis Slight A 11/06/18 05:56 Microcytosis 1+ A 11/07/18 05:33 ESR 7 MM/HOUR (0-15) 11/07/18 05:33 Sodium 141 mmol/L (136-145) 11/08/18 05:30 Corrected Sodium TNP 11/08/18 05:30 Potassium 3.5 mmol/L (3.5-5.1) 11/08/18 05:30 Chloride 106 mmol/L (98-107) 11/08/18 05:30 Carbon Dioxide 27.3 mmol/L (21-32) 11/08/18 05:30 BUN 1 mg/dL (7-18) L 11/08/18 05:30 Creatinine 0.61 mg/dL (0.70-1.30) L 11/08/18 05:30 Est GFR (MDRD) Af Amer > 60 (>60) 11/08/18 05:30 Est GFR (MDRD) Non-Af > 60 (>60) 11/08/18 05:30 Glucose 87 mg/dL (65-99) 11/08/18 05:30 Calcium 7.9 mg/dL (8.5-10.1) L 11/08/18 05:30 Corrected Calcium 8.8 mg/dL (8.5-10.1) 11/08/18 05:30 Magnesium 1.8 mg/dL (1.7-2.9) 11/07/18 05:33 Total Bilirubin 0.40 mg/dL (0.2-1.0) 11/08/18 05:30 AST 35 Units/L (15-37) 11/08/18 05:30 ALT 45 Units/L (12-78) 11/08/18 05:30 Alkaline Phosphatase 46 Units/L (46-116) 11/08/18 05:30 C-Reactive Protein 8.40 mg/L (0-3.0) H 11/08/18 05:30 Total Protein 6.1 g/dL (6.4-8.2) L 11/08/18 05:30 Albumin 2.9 g/dL (3.4-5.0) L 11/08/18 05:30 Globulin 3.2 g/dL (2.5-4.5) 11/08/18 05:30 Albumin/Globulin Ratio 0.9 Ratio (1.1-2.1) L 11/08/18 05:30 Amylase 56 Units/L (25-115) 11/04/18 00:41 Lipase 40 Units/L (73-393) L 11/04/18 00:41 Carcinoembryonic Ag 1.1 ng/mL (0.0-3.0) 11/05/18 05:43 Specimen Type Clean catch urine 11/04/18 01:05 Urine Color Yellow (YELLOW) 11/04/18 01:05 Urine Appearance Clear (CLEAR) 11/04/18 01:05 Urine pH 6.5 (5.0 - 8.0) 11/04/18 01:05 Ur Specific [place] 1.010 (1.000-1.030) 11/04/18 01:05 Urine Protein Negative (NEGATIVE) 11/04/18 01:05 Urine Glucose (UA) Negative (NEGATIVE) 11/04/18 01:05 Urine Ketones Negative (NEGATIVE) 11/04/18 01:05 Urine Occult Blood 1+ (NEGATIVE) 11/04/18 01:05 Urine Nitrite Negative (NEGATIVE) 11/04/18 01:05 Urine Bilirubin Negative (NEGATIVE) 11/04/18 01:05 Urine Urobilinogen 2+ (NORMAL) 11/04/18 01:05 Ur Leukocyte Esterase Negative (NEGATIVE) 11/04/18 01:05 Urine RBC 0-2 /HPF (0-3) 11/04/18 01:05 Urine WBC 0-2 /HPF (0-5) 11/04/18 01:05 Ur Squamous Epith Cells Few /HPF (NEGATIVE) 11/04/18 01:05 Urine Bacteria Negative /HPF (NEGATIVE) 11/04/18 01:05 Ur Culture Indicated? No/not indicated 11/04/18 01:05 - Plan (1) Abdominal pain Status: Acute Qualifiers: Abdominal location: left upper quadrant Qualified Code(s): R10.12 - Left upper quadrant pain Plan: NORMAL SALINE AT 150ML/HR, ZOSYN 3.375G IV TID, FLAGYL 500MG IV Q6H, PEPCID 20MG IV Q12H, PROTONIX 40MG IV BID, ZOFRAN 4MG IV Q6H PRN, AND MORPHINE 2MG IV Q4H PRN. (2) Perforated abdominal viscus Status: Suspected
[2018-11-09] MEDS: FLAGYL IV PREMIX 500 MG BAG 500 MG/100 ML BAG IV SCH ×2 (02:09→09:10)
[2018-11-09] MEDS: NS 1000 ML 1,000 ML IV SCH (04:52)
[2018-11-09] MEDS: ZOSYN VIAL 3.375 GRAMS 3.375 G in NS 100 ML IV + SPIKE MINIBAG* 100 ML IV SCH (05:14)
[2018-11-09 05:23] LABS: BASOPHILS # (AUTO) 0.1 X10^3/uL (0.0-0.1); BASOPHILS % (AUTO) 1.1 % (0.2-1.0); EOSINOPHILS # (AUTO) 0.2 x10^3/uL (0.0-0.2); EOSINOPHILS % (AUTO) 2.9 % (0.9-2.9); HEMATOCRIT 30.6 % (42.0-54.0); HEMOGLOBIN 10.1 g/dL (13.5-18.0); LYMPHOCYTES # (AUTO) 1.4 X10^3/uL (1.3-2.9); LYMPHOCYTES % (AUTO) 25.9 % (21.0-51.0); MEAN CORPUSCULAR HEMOGLOBIN 22.9 pg (27.0-34.0); MEAN CORPUSCULAR VOLUME 69.4 fL (80.0-100.0); MEAN PLATELET VOLUME 10.9 fL (7.4-11.0); MONOCYTES # (AUTO) 0.7 x10^3/uL (0.3-0.8); MONOCYTES % (AUTO) 12.9 % (0.0-13.0); NEUTROPHILS # (AUTO) 3.1 x10^3/uL (2.2-4.8); NEUTROPHILS % (AUTO) 57.2 % (42.0-75.0); PLATELET COUNT 161 X10^3/uL (150.0-450.0); RED BLOOD COUNT 4.41 X10^6/uL (4.7-6.0); RED CELL DISTRIBUTION WIDTH 15.3 % (11.6-16.5); WHITE BLOOD COUNT 5.5 X10^3/uL (3.6-10.0)
[2018-11-09 05:28] LABS: ALANINE AMINOTRANSFERASE 50 Units/L (12-78); ALBUMIN 2.9 g/dL (3.4-5.0); ALKALINE PHOSPHATASE 47 Units/L (46-116); ASPARTATE AMINO TRANSFERASE 39 Units/L (15-37); BLOOD UREA NITROGEN 2 mg/dL (7-18); CALCIUM 8.1 mg/dL (8.5-10.1); CARBON DIOXIDE 29.1 mmol/L (21-32); CHLORIDE 106 mmol/L (98-107); CREATININE 0.67 mg/dL (0.70-1.30); SODIUM 141 mmol/L (136-145); TOTAL PROTEIN 6.1 g/dL (6.4-8.2); eGFR NON BLACK RACES > 60 (>60)
[2018-11-09 05:46] LABS: HYPOCHROMASIA 1+; MICROCYTOSIS 1+; PLATELET MORPHOLOGY COMMENT NORMAL (NORMAL)
[2018-11-09] MEDS: PEPCID 20 MG IV PREMIX* 20 MG/50 ML BAG IV SCH (09:09)
[2018-11-09] MEDS: PROTONIX INJ 40 MG VIAL IVP SCH (09:10)
[2018-11-09 11:47] VITALS: BP 148/80
== END 2018-11-09 11:59 | disposition home or self-care (01) | DRG 392 ==
LOC: ER 23:16 → MED/SURG 11-04 02:17 → ER 11-04 02:42
PROVIDERS: ADMIT Internal Medicine; ATTEND Internal Medicine
DX: E72.20 Disorder of urea cycle metabolism, unspecified; D50.9 Iron deficiency anemia, unspecified; K57.92 Diverticulitis of intestine, part unspecified, without perforation or abscess without bleeding; E83.51 Hypocalcemia; I10 Essential (primary) hypertension; N32.1 Vesicointestinal fistula; R10.12 Left upper quadrant pain; Z23 Encounter for immunization
CPT/HCPCS: 36415; 74176; 74177; 80048; 80053; 81001; 82150; 82378; 83690; 83735; 85025; 85652; 86140; 96365; 96372; 96374; 96375; 99284; A4216; A4222; C9113; S0028; S0030; 90670; J1885; J2270; J2405; J2543; J3475; J3490; J7030; J7050